=== PATIENT | male | born 1970 | race Caucasian/White ===

== ENCOUNTER 2022-03-30 17:20 | Inpatient (IN) | payer OTHER, SELFPAY ==
--- NOTE | ~2022-03-30 | XR_ITS ---
EXAMINATION: XR CHEST CLINICAL INFORMATION: Right-sided pain COMPARISON: None TECHNIQUE: 2 views of the chest were obtained. FINDINGS: No significant abnormality is noted involving the heart, lungs, mediastinum, bony thorax or soft tissues. XR/XR chest 2V IMPRESSION: Unremarkable examination.
--- NOTE | ~2022-03-30 | XR_ITS ---
EXAMINATION: RIGHT SHOULDER, HUMERUS, ELBOW AND FOREARM X-RAYS CLINICAL INFORMATION: Pain COMPARISON: None TECHNIQUE: 4 views of the right shoulder, 2 views of the right humerus, 3 views of the right elbow and 2 views of the right forearm FINDINGS: Right shoulder: Bone alignment is normal. No fracture or dislocation is seen. There is mild arthritis at the acromioclavicular joint. The glenohumeral joint is normal. Soft tissues are normal. Right humerus: Bone alignment is normal. No fracture or dislocation. Normal joint spaces and soft tissues. Right elbow: Bone alignment is normal. No fracture or dislocation. Joint spaces are normal. There is no joint effusion. Right forearm: Bone alignment is normal. No fracture or dislocation. Joint spaces are normal. Soft tissues are normal.. XR/XR elbow RT 2V IMPRESSION: Mild arthritis at the right acromioclavicular joint otherwise unremarkable exams.
--- NOTE | ~2022-03-30 | XR_ITS ---
EXAMINATION: RIGHT SHOULDER, HUMERUS, ELBOW AND FOREARM X-RAYS CLINICAL INFORMATION: Pain COMPARISON: None TECHNIQUE: 4 views of the right shoulder, 2 views of the right humerus, 3 views of the right elbow and 2 views of the right forearm FINDINGS: Right shoulder: Bone alignment is normal. No fracture or dislocation is seen. There is mild arthritis at the acromioclavicular joint. The glenohumeral joint is normal. Soft tissues are normal. Right humerus: Bone alignment is normal. No fracture or dislocation. Normal joint spaces and soft tissues. Right elbow: Bone alignment is normal. No fracture or dislocation. Joint spaces are normal. There is no joint effusion. Right forearm: Bone alignment is normal. No fracture or dislocation. Joint spaces are normal. Soft tissues are normal.. XR/XR forearm RT 2V IMPRESSION: Mild arthritis at the right acromioclavicular joint otherwise unremarkable exams.
--- NOTE | ~2022-03-30 | XR_ITS ---
EXAMINATION: RIGHT SHOULDER, HUMERUS, ELBOW AND FOREARM X-RAYS CLINICAL INFORMATION: Pain COMPARISON: None TECHNIQUE: 4 views of the right shoulder, 2 views of the right humerus, 3 views of the right elbow and 2 views of the right forearm FINDINGS: Right shoulder: Bone alignment is normal. No fracture or dislocation is seen. There is mild arthritis at the acromioclavicular joint. The glenohumeral joint is normal. Soft tissues are normal. Right humerus: Bone alignment is normal. No fracture or dislocation. Normal joint spaces and soft tissues. Right elbow: Bone alignment is normal. No fracture or dislocation. Joint spaces are normal. There is no joint effusion. Right forearm: Bone alignment is normal. No fracture or dislocation. Joint spaces are normal. Soft tissues are normal.. XR/XR humerus RT IMPRESSION: Mild arthritis at the right acromioclavicular joint otherwise unremarkable exams.
--- NOTE | ~2022-03-30 | XR_ITS ---
EXAMINATION: RIGHT SHOULDER, HUMERUS, ELBOW AND FOREARM X-RAYS CLINICAL INFORMATION: Pain COMPARISON: None TECHNIQUE: 4 views of the right shoulder, 2 views of the right humerus, 3 views of the right elbow and 2 views of the right forearm FINDINGS: Right shoulder: Bone alignment is normal. No fracture or dislocation is seen. There is mild arthritis at the acromioclavicular joint. The glenohumeral joint is normal. Soft tissues are normal. Right humerus: Bone alignment is normal. No fracture or dislocation. Normal joint spaces and soft tissues. Right elbow: Bone alignment is normal. No fracture or dislocation. Joint spaces are normal. There is no joint effusion. Right forearm: Bone alignment is normal. No fracture or dislocation. Joint spaces are normal. Soft tissues are normal.. XR/XR shoulder RT min 2V IMPRESSION: Mild arthritis at the right acromioclavicular joint otherwise unremarkable exams.
--- NOTE | 2022-03-30 17:26 | ED_ITS ---
HPI - Psych General Chief Complaint: Psychiatric Symptoms <Adriana Esquivel NP - Last Filed: 03/31/22 02:07> Stated Complaint: section 12 <Adriana Esquivel NP - Last Filed: 03/31/22 02:07> Time Seen by Provider: 03/31/22 03:02 <Adriana Esquivel NP - Last Filed: 03/31/22 02:07> Source: patient and EMS <Adriana Esquivel NP - Last Filed: 03/31/22 02:07> Mode of arrival: EMS <Adriana Esquivel NP - Last Filed: 03/31/22 02:07> Limitations: no limitations <Adriana Esquivel NP - Last Filed: 03/31/22 02:07> History of Present Illness HPI Narrative: 51-year-old male presents via EMS on a Section 12 bed search from the community. Patient is suicidal and has a plan. <Adriana Esquivel NP - Last Filed: 03/31/22 02:07> MD complaint: suicidal ideation and substance abuse <Adriana Esquivel NP - Last Filed: 03/31/22 02:07> Onset (ago): week(s) <Adriana Esquivel NP - Last Filed: 03/31/22 02:07> Duration: constant <Adriana Esquivel NP - Last Filed: 03/31/22 02:07> History of same: Yes <Adriana Esquivel NP - Last Filed: 03/31/22 02:07> Relieving factors: none <Adriana Esquivel NP - Last Filed: 03/31/22 02:07> Context: recent drug abuse <Adriana Esquivel NP - Last Filed: 03/31/22 02:07> Associated psychiatric symptoms: depression and suicidal ideation <Adriana Esquivel NP - Last Filed: 03/31/22 02:07> Associated symptoms: denies other symptoms <Adriana Esquivel NP - Last Filed: 03/31/22 02:07> Treatments prior to arrival: placed on mental health hold <Adriana Esquivel NP - Last Filed: 03/31/22 02:07> If self harm: admits thoughts of self harm and has plan <SARATH England Last Filed: 03/31/22 02:07> Related Data Home Medications: Home Medications Medication Instructions Recorded Confirmed bictegravir 50 mg-emtricitabine 1 tab PO DAILY 03/30/22 03/30/22 200 mg-tenofovir alafenam 25 mg tablet (Biktarvy) budesonide-formoterol HFA 80 1 inh inhalation BID 03/30/22 03/30/22 mcg-4.5 mcg/actuation aerosol inhaler (Symbicort) quetiapine 50 mg tablet 1 tab PO BEDTIME 03/30/22 03/30/22 <Adriana Esquivel NP - Last Filed: 03/31/22 02:07> Allergies/Adverse Reactions: Allergies Allergy/AdvReac Type Severity Reaction Status Date / Time No Known Allergies Allergy Verified 03/30/22 17:29 <SARATH England Last Filed: 03/31/22 02:07> Review of Systems Review of Systems: Constitutional: No Fever, No Chills ENT/Mouth: No Ear Pain, No Hoarseness, No sore throat Eyes: No Eye Pain, No Swelling, No Redness, No Foreign Body Cardiovascular: No Chest Pain, No SOB Respiratory: No Cough, No Dyspnea Gastrointestinal: No Nausea, No Vomiting, No Diarrhea, No abdominal Pain Genitourinary: No Dysuria, No Hematuria Musculoskeletal: No joint pain, No Myalgias, No Joint Swelling Skin: No Skin lacerations, No rash Neuro: No Weakness, No Numbness, No Paresthesias, No Loss of Consciousness, No Dizziness, No Headache Psych: No Anxiety/Panic, positive Depression, positive suicidal ideation, positive substance abuse, Heme/Lymph: no easy bruising, no Lymphadenopathy Endocrine: No Polyuria, No Polydipsia <SARATH England Last Filed: 03/31/22 02:07> Yes all other systems are reviewed and are negative <Adriana Esquivel NP - Last Filed: 03/31/22 02:07> [facility] Past Medical History Attestation statement: The following information was validated with the patient. <SARATH England Last Filed: 03/31/22 02:07> Source: old records reviewed <Adriana Esquivel NP - Last Filed: 03/31/22 02:07> Social History Social History: Social History Use of substances other than those prescribed or required for medical reasons: Yes Substance Use Type: Crack/Cocaine Advance Directives: No Advance Directives Information Provided: No <Adriana Esquivel NP - Last Filed: 03/31/22 02:07> Physical Exam Vital Signs: Vital Signs: Last Vital Signs Temp 98.6 F 03/31/22 08:59 Pulse 93 03/31/22 08:59 Resp 16 03/31/22 08:59 BP 113/76 03/31/22 08:59 Pulse Ox 99 03/31/22 08:59 O2 Del Method 03/31/22 08:59 BMI result Body Mass Index 27.4 <Adriana Esquivel NP - Last Filed: 03/31/22 02:07> Vital Signs: Last Vital Signs Temp 98.6 F 03/31/22 08:59 Pulse 93 03/31/22 08:59 Resp 16 03/31/22 08:59 BP 113/76 03/31/22 08:59 Pulse Ox 99 03/31/22 08:59 O2 Del Method 03/31/22 08:59 BMI result Body Mass Index 27.4 <Karrie Adorno MD - Last Filed: 03/31/22 05:14> Vital Signs: Last Vital Signs Temp 98.6 F 03/31/22 08:59 Pulse 93 03/31/22 08:59 Resp 16 03/31/22 08:59 BP 113/76 03/31/22 08:59 Pulse Ox 99 03/31/22 08:59 O2 Del Method 03/31/22 08:59 BMI result Body Mass Index 27.4 <Vicente Perez MD - Last Filed: 03/31/22 14:26> Appearance: Alert. Oriented X3. No acute distress. Eyes: Pupils equal, round and reactive to light. ENT: Pharynx normal. Neck: Normal inspection. Neck supple. CVS: Normal heart rate and rhythm. Pulses normal. Respiratory: No respiratory distress. Breath sounds normal. Abdomen: Soft and nontender. Skin: Folliculitis to his back, 1 cm growth to his left dorsal aspect of the 5th metacarpal. Skin warm and dry. Normal skin color. Normal skin turgor. Extremities: No lower extremity edema. Gait well-balanced well coordinated. Neuro: No motor deficit. No sensory deficit. Cranial nerves 2-12 intact. <Adriana Esquivel NP - Last Filed: 03/31/22 02:07> Course Course Course Narrative: 51-year-old male presents via EMS on section 12 bed search from the community for suicidal ideation with plan. Patient does report using cocaine. States that he has been depressed for several weeks. Patient reports feeling better at this time knowing that he is going to get help. Will order labs. Patient does have a rash to his back consistent with folliculitis and hard growth to his left dorsal aspect of the 5th metacarpal. Will order doxycycline as patient is immunocompromised and has HIV. 17:28 physician observation at this time. <Adriana Esquivel NP - Last Filed: 03/31/22 02:07> Reevaluation(s) Reevaluation #1: No events overnight. Patient's white blood cell count within normal limits, no fever chills. Patient being treated with doxycycline b.i.d. for hand cellulitis.. Patient is on a Section 12, bed search, vitals stable <Karrie Adorno MD - Last Filed: 03/31/22 05:14> Time: 05:13 <Karrie Adorno MD - Last Filed: 03/31/22 05:14> Reevaluation #2: Patient has been admitted for psych for SI with plan <Vicente Perez MD - Last Filed: 03/31/22 14:26> Time: 14:25 <Vicente Perez MD - Last Filed: 03/31/22 14:26> MDM - Psych Differential Diagnosis Differential diagnosis: Likely suicidal ideation, depression, drug-induced psychotic disorder and substance abuse <Adirana Esquivel NP - Last Filed: 03/31/22 02:07> Medical Records Attestation: I reviewed the patient's medical records. <Adriana Esquivel NP - Last Filed: 03/31/22 02:07> Lab Data Attestation: I reviewed the patient's lab results. <Adriana Esquivel NP - Last Filed: 03/31/22 02:07> Result diagrams: : 03/30/22 17:57 03/30/22 17:57 <Adriana Esquivel, SOCIAL AND HUMAN SERVICES ASSISTANT - Last Filed: 03/31/22 02:07> Labs: Lab Results 03/30/22 03/30/22 03/30/22 Range/Units 17:57 17:57 17:57 WBC 5.8 (4.8-10.8) X10*3/uL RBC 4.47 L (4.60-5.80) X10*6/uL Hgb 14.7 (14.0-18.0) g/dl Hct 41.5 L (42.0-52.0) % MCV 92.8 (80.0-98.0) fL MCH 32.9 (27.0-33.0) pg MCHC 35.4 (31.0-36.0) g/dl RDW 12.6 (11.0-16.0) % Plt Count 140 L (160-400) X10*3/uL MPV 10.5 (9.4-12.4) fL Immature Gran % (Auto) 0.2 (0.0-0.4) % Neut % (Auto) 63.1 (45-73) % Lymph % (Auto) 20.0 (20-40) % Talbot % (Auto) 13.9 H (2-11) % Eos % (Auto) 2.1 (0-4) % Baso % (Auto) 0.7 (0-2) % Lymph # (Auto) 1.2 (1.2-4.9) X10*3/uL Talbot # (Auto) 0.8 (0.1-1.2) X10*3/uL Eos # (Auto) 0.1 (0.0-0.4) X10*3/uL Baso # (Auto) 0.0 (0.0-0.2) X10*3/uL Abs Immat Gran (auto) 0.01 (0.00-0.03) X10*3/uL Absolute Neuts (auto) 3.6 (2.0-8.3) x10*3/uL Absolute Nucleated RBC 0.000 (0.0-0.012) X10*3/uL Nucleated RBC % (auto) 0.0 (0.0-0.2) /100WBC Sodium 138 (135-145) mmol/L Potassium 3.6 (3.3-5.1) mmol/L Chloride 101 (96-108) mmol/L Carbon Dioxide 25 (22-29) mmol/L Anion Gap 16 (12-20) BUN 20 H (9-16) mg/dL Creatinine 1.11 (0.5-1.4) mg/dL Estim Creat Clear Calc 77.8 Estimated GFR > 60 Random Glucose 105 (60-115) mg/dL Calcium 10.0 (8.4-10.2) mg/dL Total Bilirubin 0.9 (0.0-1.0) mg/dL AST 23 (5-37) U/L ALT 19 (0-40) U/L Alkaline Phosphatase 42 (39-117) U/L Total Protein 7.8 (6.5-8.0) g/dL Albumin 4.7 (3.5-5.0) g/dL Urine Opiates Screen Not Detected (Not Detect) Urine Fentanyl Screen Not Detected (Not Detect) Ur Barbiturates Screen Not Detected (Not Detect) Ur Phencyclidine Scrn Not Detected (Not Detect) Ur Amphetamines Screen Not Detected (Not Detect) U Benzodiazepines Scrn Not Detected (Not Detect) Urine Cocaine Screen POSITIVE H (Not Detect) U Marijuana (THC) Screen Not Detected (Not Detect) Ethyl Alcohol < 10 mg/dL COVID-19 ([facility]) (Negative) COVID-19 Clin Com 03/30/22 03/31/22 Range/Units 18:00 12:22 WBC (4.8-10.8) X10*3/uL RBC (4.60-5.80) X10*6/uL Hgb (14.0-18.0) g/dl Hct (42.0-52.0) % MCV (80.0-98.0) fL MCH (27.0-33.0) pg MCHC (31.0-36.0) g/dl RDW (11.0-16.0) % Plt Count (160-400) X10*3/uL MPV (9.4-12.4) fL Immature Gran % (Auto) (0.0-0.4) % Neut % (Auto) (45-73) % Lymph % (Auto) (20-40) % Talbot % (Auto) (2-11) % Eos % (Auto) (0-4) % Baso % (Auto) (0-2) % Lymph # (Auto) (1.2-4.9) X10*3/uL Talbot # (Auto) (0.1-1.2) X10*3/uL Eos # (Auto) (0.0-0.4) X10*3/uL Baso # (Auto) (0.0-0.2) X10*3/uL Abs Immat Gran (auto) (0.00-0.03) X10*3/uL Absolute Neuts (auto) (2.0-8.3) x10*3/uL Absolute Nucleated RBC (0.0-0.012) X10*3/uL Nucleated RBC % (auto) (0.0-0.2) /100WBC Sodium (135-145) mmol/L Potassium (3.3-5.1) mmol/L Chloride (96-108) mmol/L Carbon Dioxide (22-29) mmol/L Anion Gap (12-20) BUN (9-16) mg/dL Creatinine (0.5-1.4) mg/dL Estim Creat Clear Calc Estimated GFR Random Glucose (60-115) mg/dL Calcium (8.4-10.2) mg/dL Total Bilirubin (0.0-1.0) mg/dL AST (5-37) U/L ALT (0-40) U/L Alkaline Phosphatase (39-117) U/L Total Protein (6.5-8.0) g/dL Albumin (3.5-5.0) g/dL Urine Opiates Screen (Not Detect) Urine Fentanyl Screen (Not Detect) Ur Barbiturates Screen (Not Detect) Ur Phencyclidine Scrn (Not Detect) Ur Amphetamines Screen (Not Detect) U Benzodiazepines Scrn (Not Detect) Urine Cocaine Screen (Not Detect) U Marijuana (THC) Screen (Not Detect) Ethyl Alcohol mg/dL COVID-19 ([facility]) Negative Negative (Negative) COVID-19 Clin Com See Note See Note <Adriana Esquivel NP - Last Filed: 03/31/22 02:07> Lab Results 03/30/22 03/30/22 03/30/22 Range/Units 17:57 17:57 17:57 WBC 5.8 (4.8-10.8) X10*3/uL RBC 4.47 L (4.60-5.80) X10*6/uL Hgb 14.7 (14.0-18.0) g/dl Hct 41.5 L (42.0-52.0) % MCV 92.8 (80.0-98.0) fL MCH 32.9 (27.0-33.0) pg MCHC 35.4 (31.0-36.0) g/dl RDW 12.6 (11.0-16.0) % Plt Count 140 L (160-400) X10*3/uL MPV 10.5 (9.4-12.4) fL Immature Gran % (Auto) 0.2 (0.0-0.4) % Neut % (Auto) 63.1 (45-73) % Lymph % (Auto) 20.0 (20-40) % Talbot % (Auto) 13.9 H (2-11) % Eos % (Auto) 2.1 (0-4) % Baso % (Auto) 0.7 (0-2) % Lymph # (Auto) 1.2 (1.2-4.9) X10*3/uL Talbot # (Auto) 0.8 (0.1-1.2) X10*3/uL Eos # (Auto) 0.1 (0.0-0.4) X10*3/uL Baso # (Auto) 0.0 (0.0-0.2) X10*3/uL Abs Immat Gran (auto) 0.01 (0.00-0.03) X10*3/uL Absolute Neuts (auto) 3.6 (2.0-8.3) x10*3/uL Absolute Nucleated RBC 0.000 (0.0-0.012) X10*3/uL Nucleated RBC % (auto) 0.0 (0.0-0.2) /100WBC Sodium 138 (135-145) mmol/L Potassium 3.6 (3.3-5.1) mmol/L Chloride 101 (96-108) mmol/L Carbon Dioxide 25 (22-29) mmol/L Anion Gap 16 (12-20) BUN 20 H (9-16) mg/dL Creatinine 1.11 (0.5-1.4) mg/dL Estim Creat Clear Calc 77.8 Estimated GFR > 60 Random Glucose 105 (60-115) mg/dL Calcium 10.0 (8.4-10.2) mg/dL Total Bilirubin 0.9 (0.0-1.0) mg/dL AST 23 (5-37) U/L ALT 19 (0-40) U/L Alkaline Phosphatase 42 (39-117) U/L Total Protein 7.8 (6.5-8.0) g/dL Albumin 4.7 (3.5-5.0) g/dL Urine Opiates Screen Not Detected (Not Detect) Urine Fentanyl Screen Not Detected (Not Detect) Ur Barbiturates Screen Not Detected (Not Detect) Ur Phencyclidine Scrn Not Detected (Not Detect) Ur Amphetamines Screen Not Detected (Not Detect) U Benzodiazepines Scrn Not Detected (Not Detect) Urine Cocaine Screen POSITIVE H (Not Detect) U Marijuana (THC) Screen Not Detected (Not Detect) Ethyl Alcohol < 10 mg/dL COVID-19 ([facility]) (Negative) COVID-19 Clin Com 03/30/22 03/31/22 Range/Units 18:00 12:22 WBC (4.8-10.8) X10*3/uL RBC (4.60-5.80) X10*6/uL Hgb (14.0-18.0) g/dl Hct (42.0-52.0) % MCV (80.0-98.0) fL MCH (27.0-33.0) pg MCHC (31.0-36.0) g/dl RDW (11.0-16.0) % Plt Count (160-400) X10*3/uL MPV (9.4-12.4) fL Immature Gran % (Auto) (0.0-0.4) % Neut % (Auto) (45-73) % Lymph % (Auto) (20-40) % Talbot % (Auto) (2-11) % Eos % (Auto) (0-4) % Baso % (Auto) (0-2) % Lymph # (Auto) (1.2-4.9) X10*3/uL Talbot # (Auto) (0.1-1.2) X10*3/uL Eos # (Auto) (0.0-0.4) X10*3/uL Baso # (Auto) (0.0-0.2) X10*3/uL Abs Immat Gran (auto) (0.00-0.03) X10*3/uL Absolute Neuts (auto) (2.0-8.3) x10*3/uL Absolute Nucleated RBC (0.0-0.012) X10*3/uL Nucleated RBC % (auto) (0.0-0.2) /100WBC Sodium (135-145) mmol/L Potassium (3.3-5.1) mmol/L Chloride (96-108) mmol/L Carbon Dioxide (22-29) mmol/L Anion Gap (12-20) BUN (9-16) mg/dL Creatinine (0.5-1.4) mg/dL Estim Creat Clear Calc Estimated GFR Random Glucose (60-115) mg/dL Calcium (8.4-10.2) mg/dL Total Bilirubin (0.0-1.0) mg/dL AST (5-37) U/L ALT (0-40) U/L Alkaline Phosphatase (39-117) U/L Total Protein (6.5-8.0) g/dL Albumin (3.5-5.0) g/dL Urine Opiates Screen (Not Detect) Urine Fentanyl Screen (Not Detect) Ur Barbiturates Screen (Not Detect) Ur Phencyclidine Scrn (Not Detect) Ur Amphetamines Screen (Not Detect) U Benzodiazepines Scrn (Not Detect) Urine Cocaine Screen (Not Detect) U Marijuana (THC) Screen (Not Detect) Ethyl Alcohol mg/dL COVID-19 ([facility]) Negative Negative (Negative) COVID-19 Clin Com See Note See Note <Karrie Adorno MD - Last Filed: 03/31/22 05:14> Lab Results 03/30/22 03/30/22 03/30/22 Range/Units 17:57 17:57 17:57 WBC 5.8 (4.8-10.8) X10*3/uL RBC 4.47 L (4.60-5.80) X10*6/uL Hgb 14.7 (14.0-18.0) g/dl Hct 41.5 L (42.0-52.0) % MCV 92.8 (80.0-98.0) fL MCH 32.9 (27.0-33.0) pg MCHC 35.4 (31.0-36.0) g/dl RDW 12.6 (11.0-16.0) % Plt Count 140 L (160-400) X10*3/uL MPV 10.5 (9.4-12.4) fL Immature Gran % (Auto) 0.2 (0.0-0.4) % Neut % (Auto) 63.1 (45-73) % Lymph % (Auto) 20.0 (20-40) % Talbot % (Auto) 13.9 H (2-11) % Eos % (Auto) 2.1 (0-4) % Baso % (Auto) 0.7 (0-2) % Lymph # (Auto) 1.2 (1.2-4.9) X10*3/uL Talbot # (Auto) 0.8 (0.1-1.2) X10*3/uL Eos # (Auto) 0.1 (0.0-0.4) X10*3/uL Baso # (Auto) 0.0 (0.0-0.2) X10*3/uL Abs Immat Gran (auto) 0.01 (0.00-0.03) X10*3/uL Absolute Neuts (auto) 3.6 (2.0-8.3) x10*3/uL Absolute Nucleated RBC 0.000 (0.0-0.012) X10*3/uL Nucleated RBC % (auto) 0.0 (0.0-0.2) /100WBC Sodium 138 (135-145) mmol/L Potassium 3.6 (3.3-5.1) mmol/L Chloride 101 (96-108) mmol/L Carbon Dioxide 25 (22-29) mmol/L Anion Gap 16 (12-20) BUN 20 H (9-16) mg/dL Creatinine 1.11 (0.5-1.4) mg/dL Estim Creat Clear Calc 77.8 Estimated GFR > 60 Random Glucose 105 (60-115) mg/dL Calcium 10.0 (8.4-10.2) mg/dL Total Bilirubin 0.9 (0.0-1.0) mg/dL AST 23 (5-37) U/L ALT 19 (0-40) U/L Alkaline Phosphatase 42 (39-117) U/L Total Protein 7.8 (6.5-8.0) g/dL Albumin 4.7 (3.5-5.0) g/dL Urine Opiates Screen Not Detected (Not Detect) Urine Fentanyl Screen Not Detected (Not Detect) Ur Barbiturates Screen Not Detected (Not Detect) Ur Phencyclidine Scrn Not Detected (Not Detect) Ur Amphetamines Screen Not Detected (Not Detect) U Benzodiazepines Scrn Not Detected (Not Detect) Urine Cocaine Screen POSITIVE H (Not Detect) U Marijuana (THC) Screen Not Detected (Not Detect) Ethyl Alcohol < 10 mg/dL COVID-19 ([facility]) (Negative) COVID-19 Clin Com 03/30/22 03/31/22 Range/Units 18:00 12:22 WBC (4.8-10.8) X10*3/uL RBC (4.60-5.80) X10*6/uL Hgb (14.0-18.0) g/dl Hct (42.0-52.0) % MCV (80.0-98.0) fL MCH (27.0-33.0) pg MCHC (31.0-36.0) g/dl RDW (11.0-16.0) % Plt Count (160-400) X10*3/uL MPV (9.4-12.4) fL Immature Gran % (Auto) (0.0-0.4) % Neut % (Auto) (45-73) % Lymph % (Auto) (20-40) % Talbot % (Auto) (2-11) % Eos % (Auto) (0-4) % Baso % (Auto) (0-2) % Lymph # (Auto) (1.2-4.9) X10*3/uL Talbot # (Auto) (0.1-1.2) X10*3/uL Eos # (Auto) (0.0-0.4) X10*3/uL Baso # (Auto) (0.0-0.2) X10*3/uL Abs Immat Gran (auto) (0.00-0.03) X10*3/uL Absolute Neuts (auto) (2.0-8.3) x10*3/uL Absolute Nucleated RBC (0.0-0.012) X10*3/uL Nucleated RBC % (auto) (0.0-0.2) /100WBC Sodium (135-145) mmol/L Potassium (3.3-5.1) mmol/L Chloride (96-108) mmol/L Carbon Dioxide (22-29) mmol/L Anion Gap (12-20) BUN (9-16) mg/dL Creatinine (0.5-1.4) mg/dL Estim Creat Clear Calc Estimated GFR Random Glucose (60-115) mg/dL Calcium (8.4-10.2) mg/dL Total Bilirubin (0.0-1.0) mg/dL AST (5-37) U/L ALT (0-40) U/L Alkaline Phosphatase (39-117) U/L Total Protein (6.5-8.0) g/dL Albumin (3.5-5.0) g/dL Urine Opiates Screen (Not Detect) Urine Fentanyl Screen (Not Detect) Ur Barbiturates Screen (Not Detect) Ur Phencyclidine Scrn (Not Detect) Ur Amphetamines Screen (Not Detect) U Benzodiazepines Scrn (Not Detect) Urine Cocaine Screen (Not Detect) U Marijuana (THC) Screen (Not Detect) Ethyl Alcohol mg/dL COVID-19 ([facility]) Negative Negative (Negative) COVID-19 Clin Com See Note See Note <Vicente Perez MD - Last Filed: 03/31/22 14:26> Discharge Plan Discharge Clinical Impression: Suicidal ideation, Folliculitis <Adriana Esquivel NP - Last Filed: 03/31/22 02:07> Patient Disposition: Admitted As Inpatient <Adriana Esquivel NP - Last Filed: 03/31/22 02:07>
[2022-03-30 17:28] VITALS: BP 127/79; BP 136/96; PULSE 65; PULSE 71; RESP 14; TEMP 36.6; O2SAT 98; BMI 27.4
--- NOTE | 2022-03-30 17:37 | MHC.CARE ---
Pt was evaluated by [facility] in the community and arrives as a Sect 12 Bedsearch
[2022-03-30 18:03] LABS: MANUAL DIFF FLAG NO
[2022-03-30 18:09] LABS: Basophils Percent Auto 0.7 % (0-2); Eosinophils Absolute Auto 0.1 X10*3/uL (0.0-0.4); Eosinophils Percent Auto 2.1 % (0-4); Hematocrit 41.5 % (42.0-52.0); Hemoglobin 14.7 g/dl (14.0-18.0); Imm Gran Abs Auto 0.01 X10*3/uL (0.00-0.03); Imm Gran Pct Auto 0.2 % (0.0-0.4); Lymphocytes Absolute Auto 1.2 X10*3/uL (1.2-4.9); Mean Corpuscular HGB Conc 35.4 g/dl (31.0-36.0); Mean Corpuscular Hemoglobin 32.9 pg (27.0-33.0); Mean Corpuscular Volume 92.8 fL (80.0-98.0); Mean Platelet Volume 10.5 fL (9.4-12.4); Monocytes Absolute Auto 0.8 X10*3/uL (0.1-1.2); Monocytes Percent Auto 13.9 % (2-11); Neutrophils Absolute Auto 3.6 x10*3/uL (2.0-8.3); Neutrophils Percent Auto 63.1 % (45-73); Platelet Count 140 X10*3/uL (160-400); Red Blood Count 4.47 X10*6/uL (4.60-5.80); Red Cell Distribution Width 12.6 % (11.0-16.0); White Blood Count 5.8 X10*3/uL (4.8-10.8)
--- NOTE | 2022-03-30 18:17 | PC.NURSE ---
pt section 12 by silvestre due to SI with plan to walk into traffic, denies HI. pt changed into hospital attire, belongings searched and secured in locker in the POD. labs drawn, snack given. denies pain/vss. pt currently resting quietly in bed. pt cooperative with all requests. he denies SI/HI at this time. this rn at the pt's bedside.
[2022-03-30 18:21] LABS: COVID-19 Test Negative (Negative)
[2022-03-30 18:24] LABS: Alanine Aminotransferase 19 U/L (0-40); Albumin Level 4.7 g/dL (3.5-5.0); Alkaline Phosphatase 42 U/L (39-117); Amphetamine Screen Urine Not Detected (Not Detect); Anion Gap 16 (12-20); Aspartate Amino Transferase 23 U/L (5-37); Barbiturates, Urine Not Detected (Not Detect); Benzodiazepines Screen Urine Not Detected (Not Detect); Bilirubin Total 0.9 mg/dL (0.0-1.0); Blood Urea Nitrogen 20 mg/dL (9-16); Cannabinoid Screen Urine Not Detected (Not Detect); Carbon Dioxide 25 mmol/L (22-29); Chloride 101 mmol/L (96-108); Cocaine Screen Urine POSITIVE (Not Detect); Creatinine Clr Calc Pharmacy 77.8; Estimated Glomerular Filt Rate > 60; Ethanol < 10 mg/dL; Fentanyl, urine Not Detected (Not Detect); Glucose Random 105 mg/dL (60-115); Opiate Screen Urine Not Detected (Not Detect); Phencyclidine Screen Urine Not Detected (Not Detect); Potassium 3.6 mmol/L (3.3-5.1); Sodium 138 mmol/L (135-145); Total Protein 7.8 g/dL (6.5-8.0)
--- NOTE | 2022-03-31 | ECG_ITS ---
Test Reason : medical clearance Blood Pressure : / mmHG Vent. Rate : 056 BPM Atrial Rate : 056 BPM P-R Int : 142 ms QRS Dur : 096 ms QT Int : 388 ms P-R-T Axes : 047 040 052 degrees QTc Int : 374 ms Sinus bradycardia Otherwise normal ECG No previous ECGs available Referred By: Vicente Perez Electronically Signed By:DANA CONNER
[2022-03-31 01:51] VITALS: BP 115/83; PULSE 66; RESP 16; TEMP 36.4; O2SAT 98
--- NOTE | 2022-03-31 06:39 | PC.NURSE ---
Patient slept through the night, no distress observed/reported, mood depressed, [place] speaking only, patient is on Doxy 100 gm BID for folliculitis, medication compliant, disposition per [facility] is section 12 inpatient bed search, med rec completed/pending provider's approval, behavior non concerning, VSS, will continue to monitor.
--- NOTE | 2022-03-31 07:37 | PC.NURSE ---
Report received. PT currently resting, denies complaints. PT is an inpatient bedsearch.
[2022-03-31 08:59] VITALS: BP 113/76; PULSE 93; RESP 16; TEMP 37; O2SAT 99
[2022-03-31] MEDS: Bictegrav/Emtricit/Tenofov Ala TABLET 1 TAB PO (10:02)
[2022-03-31 12:46] LABS: COVID-19 Test Negative (Negative)
--- NOTE | 2022-03-31 18:33 | PC.NURSE ---
PT MOVED TO THE MAIN ED TO AWAIT TRANSFER TO . PT COOPERATIVE AND AGREEABLE. PROVIDED DINNER
--- NOTE | 2022-03-31 22:17 | PC.NURSE ---
attempted to call report at 2040pm and 2215pm. Unable to take report at this time.
[2022-03-31] MEDS: QUEtiapine Fumarate 50 MG TABLET PO (23:08)
[2022-03-31 23:35] VITALS: BP 116/63; PULSE 72; TEMP 35.9
--- NOTE | 2022-04-01 01:26 | PC.ADMIT ---
Patient is a 51-year-old, Sudanese, Bulgarian speaking male. He presents to from [facility] ED at approximately 23:30 03/31/22 on a 12B status. Patient is Covid negative. Per crisis report, patient was seen by N via self-presenting to the [facility] office. Patient endorses SI with a plan to jump into traffic. He reported AH/VH. He reports not sleeping for 3 days. Reports a decrease in appetite. Reports not feeling well and struggling with increased substance use. He does report using cocaine, which toxicology came back positive for. He has the inability to keep safe and was not able to make a safety plan. Patient is not previously known to psychiatry at [facility]. He states he has been depressed for several weeks, and reports feeling better at this time knowing that he is going to get help. Patient is immunocompromised and has HIV. Patient was cooperative in listening to instruction and signing all legal documentation, but declined any further admission interview due to receiving HS medication in ED and wanted to go to sleep.
[2022-04-01 06:00] VITALS: BP 118/84; PULSE 69; RESP 16; TEMP 36.6; O2SAT 98
[2022-04-01 09:07] LABS: Cholesterol 159 mg/dL; HDL Cholesterol 35 mg/dL; LDL Cholesterol Calculated 109 mg/dl; Magnesium 1.9 mg/dL (1.6-2.6); Triglycerides 79 mg/dL
[2022-04-01 09:10] LABS: Estimated Average Glucose 97 mg/dL
[2022-04-01] MEDS: Fluticasone/Vilanterol 100/25 BLST.W.DEV 1 PUFF INHALE (09:13)
[2022-04-01] MEDS: Bictegrav/Emtricit/Tenofov Ala TABLET 1 TAB PO (09:15)
[2022-04-01 09:29] LABS: Free T4 (Free Thyroxine) 0.96 ng/dL (0.71-1.85); Thyroid Stimulating Hormone 0.45 uIU/mL (0.32-4.0)
[2022-04-01 10:06] LABS: Folate 8.8 ng/mL (> or = 4.0); Vitamin B12 328 pg/mL (200-900)
[2022-04-01 18:00] VITALS: BP 111/70; PULSE 72; TEMP 36.7; O2SAT 97
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
[2022-04-01] MEDS: QUEtiapine Fumarate 50 MG TABLET PO (19:42)
[2022-04-02 06:00] VITALS: BP 118/73; PULSE 59; RESP 18; TEMP 36.5; O2SAT 97
[2022-04-02] MEDS: Bictegrav/Emtricit/Tenofov Ala TABLET 1 TAB PO (08:12)
[2022-04-02] MEDS: Fluticasone/Vilanterol 100/25 BLST.W.DEV 1 PUFF INHALE (08:13)
[2022-04-02] MEDS: hydrOXYzine HCL 25 MG TABLET PO (09:35)
[2022-04-02] MEDS: Nicotine 21 MG PATCH.TD24 TRANSDERMA (09:42)
[2022-04-02 17:23] VITALS: BP 122/75; PULSE 68; RESP 16; TEMP 36.6; O2SAT 99
--- NOTE | 2022-04-02 18:23 | HO.PSYCHPN ---
Subjective Subjective Date of Service: 04/02/22 Reason For Visit: Depression,SI Subjective Notes: Conditional Voluntary Healthcare Proxy: No Guardianship: No Medical Problems Affecting Mental Status: No Interim History: Pt reports feeling somewhat improved. Continues to ask for a long program for sobriety >28 days. SI persists, reports he is safe on the unit. Discussed sx of depression and possible trial of medication. Reports chest and right arm pain- EKG, chest xray and r arm/shoulder/forearm xrays are negative except for ID of mild arthritis. Medication Compliance: Yes Side effects from medications: No Attending Groups: Yes Review of Systems Acute medical concerns: No Medical Review of Systems: unchanged Mental Status Exam Mental Status Exam Patient Appearance: Appropriate Patient Orientation: Person, Place, Time and Situation Level of Consciousness: Alert Patient Behavior: Appropriate, Talkative and Good Eye Contact Mood Description: Depressed and Anxious Affect Description: Flat Patient Cognition Impaired: No Ability to Follow Directions: Good Speech Pattern: Spontaneous Speech Memory Description: Intact and Episodic Impaired Hallucinations: None Delusions: Not Present Perceptual Disturbances: Depersonalization and Derealization Thought Process: Rumination Thought Content: positive for Perseveration and positive for Suicidal Ideation Depressive Symptoms: Difficulty Sleeping, Changes in Appetite and Thoughts of /Suicide Judgement: Fair Diagnostics Vital Signs (24Hr): Vital Signs - 24 hr 04/02/22 06:00 04/02/22 17:23 Temperature 97.7 F 97.9 F Pulse Rate 59 68 Respiratory Rate 18 16 Blood Pressure 118/73 122/75 Pulse Oximetry 97 99 Oxygen Delivery Method Room Air Room Air BMI result Body Mass Index 27.4 Labs Results: 03/30/22 17:57 03/30/22 17:57 Labs: Laboratory Results - last 48 hr 04/01/22 04/01/22 04/01/22 08:28 08:28 08:28 Estimat Average Glucose 97 Hemoglobin A1c % 5.0 Magnesium 1.9 Triglycerides 79 Cholesterol 159 LDL Cholesterol, Calc 109 HDL Cholesterol 35 Vitamin B12 328 Folate 8.8 TSH 0.45 Free T4 0.96 Imaging Radiology Impressions: ITS Impressions Chest X-Ray 04/02/22 14:45 IMPRESSION: Unremarkable examination. Elbow X-Ray 04/02/22 14:45 IMPRESSION: Mild arthritis at the right acromioclavicular joint otherwise unremarkable exams. Forearm X-Ray 04/02/22 14:45 IMPRESSION: Mild arthritis at the right acromioclavicular joint otherwise unremarkable exams. Humerus X-Ray 04/02/22 14:45 IMPRESSION: Mild arthritis at the right acromioclavicular joint otherwise unremarkable exams. Shoulder X-Ray 04/02/22 14:45 IMPRESSION: Mild arthritis at the right acromioclavicular joint otherwise unremarkable exams. Medications Medications Current Medications Acetaminophen (Acetaminophen 325 Mg Tablet) 650 mg PO Q6H PRN PRN Reason: Headache/Pain Mild Scale (1-3) Al Hydroxide/Mg Hydroxide (Magnesium Hydrox/Alum Hydrox 30 Ml Oral.Susp) 30 ml PO Q6H PRN PRN Reason: Heartburn/Nausea Bictegravir/Emtricitabine/Tenofovir (Bictegrav/Emtricit/Tenofov Ala Tablet) 1 tab PO DAILY [facility] Last Admin: 04/02/22 08:12 Dose: 1 tab Doxycycline Hyclate (Doxycycline Hyclate 100 Mg Tablet) 100 mg PO BID [facility] Stop: 04/09/22 20:59 Last Admin: 04/02/22 08:12 Dose: 100 mg Fluticasone/Vilanterol (Fluticasone/Vilanterol 100/25 Blst.W.Dev) 1 puff INHALE RDAILY [facility] Last Admin: 04/02/22 08:13 Dose: 1 puff Hydroxyzine HCl (Hydroxyzine Hcl 25 Mg Tablet) 25 mg PO Q6H PRN PRN Reason: Anxiety Last Admin: 04/02/22 09:35 Dose: 25 mg Magnesium Hydroxide (Milk Of Magnesia 30 Ml Oral.Susp) 30 ml PO DAILY PRN PRN Reason: Constipation Mirtazapine (Mirtazapine 7.5 Mg Tablet) 7.5 mg PO BEDTIME [facility] Nicotine (Nicotine 21 Mg Patch.Td24) 21 mg TRANSDERMA DAILY [facility] Last Admin: 04/02/22 09:42 Dose: 21 mg Nicotine Polacrilex (Nicotine Polacrilex 2 Mg Gum) 4 mg BUCCAL Q2H PRN PRN Reason: Nicotine Cravings Quetiapine Fumarate (Quetiapine Fumarate 50 Mg Tablet) 50 mg PO BEDTIME [facility] Last Admin: 04/01/22 19:42 Dose: 50 mg Trazodone HCl (Trazodone Hcl 50 Mg Tablet) 50 mg PO BEDTIME PRN PRN Reason: Insomnia Allergies Allergies Allergy/AdvReac Type Severity Reaction Status Date / Time No Known Allergies Allergy Verified 03/30/22 17:29 Assessment & Plan Assessment & Plan (1) Recurrent major depression-severe: Status: Acute Code(s): F33.2 - Major depressive disorder, recurrent severe without psychotic features (2) PTSD (post-traumatic stress disorder): Status: Acute Code(s): F43.10 - Post-traumatic stress disorder, unspecified (3) Cocaine use disorder, severe, dependence: Status: Acute Code(s): F14.20 - Cocaine dependence, uncomplicated (4) Polysubstance abuse: Status: Acute Code(s): F19.10 - Other psychoactive substance abuse, uncomplicated Plan 04/02/22 Remeron 7.5 mg HS I spent minutes with the patient and/or on the patient floor today, greater than?50% of which was spent counseling/coordinating care. Patient educated on: medication risk/benefits Informed Consent: understands and further education needed Reason for contiued inpatient stay Substantial Risk for: harm to self and inability to function
[2022-04-02] MEDS: QUEtiapine Fumarate 50 MG TABLET PO (21:05)
[2022-04-02] MEDS: Mirtazapine 7.5 MG TABLET PO (21:05)
[2022-04-03 06:00] VITALS: BP 120/75; PULSE 65; TEMP 36.4; O2SAT 99
[2022-04-03] MEDS: Bictegrav/Emtricit/Tenofov Ala TABLET 1 TAB PO (08:40)
[2022-04-03] MEDS: Nicotine 21 MG PATCH.TD24 TRANSDERMA (08:40)
[2022-04-03] MEDS: Fluticasone/Vilanterol 100/25 BLST.W.DEV 1 PUFF INHALE (08:40)
[2022-04-03 08:49] VITALS: BMI 28.2
[2022-04-03] MEDS: hydrOXYzine HCL 25 MG TABLET PO (09:45)
[2022-04-03] MEDS: Magnesium Hydrox/Alum Hydrox 30 ML ORAL.SUSP PO (09:45)
[2022-04-03] MEDS: Hydrocortisone 1 % Cream 28.35 GM TUBE 1 APPL TOPICAL (12:44)
--- NOTE | 2022-04-03 16:17 | HO.PSYCHPN ---
Subjective Subjective Date of Service: 04/03/22 Reason For Visit: Depression,SI Subjective Notes: Conditional Voluntary Interim History: Discussed results of xrays-no fractures-arthritis found/?neuropathic pain. Discussed Gabapentin trial for discomfort. Tolerating meds/changes. Reports he slept last night. Medication Compliance: Yes Side effects from medications: No Attending Groups: Yes Review of Systems Acute medical concerns: No Medical Review of Systems: unchanged Mental Status Exam Mental Status Exam Patient Appearance: Appropriate Patient Orientation: Person, Place, Time and Situation Level of Consciousness: Alert Patient Behavior: Appropriate, Talkative and Good Eye Contact Mood Description: Depressed and Anxious Affect Description: Flat Patient Cognition Impaired: No Ability to Follow Directions: Good Speech Pattern: Spontaneous Speech Memory Description: Intact and Episodic Impaired Hallucinations: None Delusions: Not Present Perceptual Disturbances: Depersonalization and Derealization Thought Process: Rumination Thought Content: positive for Perseveration Depressive Symptoms: Difficulty Sleeping and Changes in Appetite Judgement: Fair Diagnostics Vital Signs (24Hr): Vital Signs - 24 hr 04/02/22 17:23 04/03/22 06:00 Temperature 97.9 F 97.5 F Pulse Rate 68 65 Respiratory Rate 16 Blood Pressure 122/75 120/75 Pulse Oximetry 99 99 Oxygen Delivery Method Room Air Room Air BMI result Body Mass Index 28.2 Labs Results: 03/30/22 17:57 03/30/22 17:57 Imaging Radiology Impressions: ITS Impressions Chest X-Ray 04/02/22 14:45 IMPRESSION: Unremarkable examination. Elbow X-Ray 04/02/22 14:45 IMPRESSION: Mild arthritis at the right acromioclavicular joint otherwise unremarkable exams. Forearm X-Ray 04/02/22 14:45 IMPRESSION: Mild arthritis at the right acromioclavicular joint otherwise unremarkable exams. Humerus X-Ray 04/02/22 14:45 IMPRESSION: Mild arthritis at the right acromioclavicular joint otherwise unremarkable exams. Shoulder X-Ray 04/02/22 14:45 IMPRESSION: Mild arthritis at the right acromioclavicular joint otherwise unremarkable exams. Medications Medications Current Medications Acetaminophen (Acetaminophen 325 Mg Tablet) 650 mg PO Q6H PRN PRN Reason: Headache/Pain Mild Scale (1-3) Al Hydroxide/Mg Hydroxide (Magnesium Hydrox/Alum Hydrox 30 Ml Oral.Susp) 30 ml PO Q6H PRN PRN Reason: Heartburn/Nausea Last Admin: 04/03/22 09:45 Dose: 30 ml Bictegravir/Emtricitabine/Tenofovir (Bictegrav/Emtricit/Tenofov Ala Tablet) 1 tab PO DAILY [facility] Last Admin: 04/03/22 08:40 Dose: 1 tab Doxycycline Hyclate (Doxycycline Hyclate 100 Mg Tablet) 100 mg PO BID [facility] Stop: 04/09/22 20:59 Last Admin: 04/03/22 08:40 Dose: 100 mg Fluticasone/Vilanterol (Fluticasone/Vilanterol 100/25 Blst.W.Dev) 1 puff INHALE RDAILY [facility] Last Admin: 04/03/22 08:40 Dose: 1 puff Hydrocortisone (Hydrocortisone 1 % Cream 28.35 Gm Tube) 1 appl TOPICAL BID PRN; Protocol PRN Reason: rash Last Admin: 04/03/22 12:44 Dose: 1 appl Hydroxyzine HCl (Hydroxyzine Hcl 25 Mg Tablet) 25 mg PO Q6H PRN PRN Reason: Anxiety Last Admin: 04/03/22 09:45 Dose: 25 mg Magnesium Hydroxide (Milk Of Magnesia 30 Ml Oral.Susp) 30 ml PO DAILY PRN PRN Reason: Constipation Mirtazapine (Mirtazapine 7.5 Mg Tablet) 7.5 mg PO BEDTIME [facility] Last Admin: 04/02/22 21:05 Dose: 7.5 mg Nicotine (Nicotine 21 Mg Patch.Td24) 21 mg TRANSDERMA DAILY [facility] Last Admin: 04/03/22 08:40 Dose: 21 mg Nicotine Polacrilex (Nicotine Polacrilex 2 Mg Gum) 4 mg BUCCAL Q2H PRN PRN Reason: Nicotine Cravings Quetiapine Fumarate (Quetiapine Fumarate 50 Mg Tablet) 50 mg PO BEDTIME [facility] Last Admin: 04/02/22 21:05 Dose: 50 mg Trazodone HCl (Trazodone Hcl 50 Mg Tablet) 50 mg PO BEDTIME PRN PRN Reason: Insomnia Allergies Allergies Allergy/AdvReac Type Severity Reaction Status Date / Time No Known Allergies Allergy Verified 03/30/22 17:29 Assessment & Plan Assessment & Plan (1) Recurrent major depression-severe: Status: Acute Code(s): F33.2 - Major depressive disorder, recurrent severe without psychotic features (2) PTSD (post-traumatic stress disorder): Status: Acute Code(s): F43.10 - Post-traumatic stress disorder, unspecified (3) Cocaine use disorder, severe, dependence: Status: Acute Code(s): F14.20 - Cocaine dependence, uncomplicated (4) Polysubstance abuse: Status: Acute Code(s): F19.10 - Other psychoactive substance abuse, uncomplicated Plan 04/02/22 Remeron 7.5 mg HS 04/03/22 Continue current plan I spent minutes with the patient and/or on the patient floor today, greater than?50% of which was spent counseling/coordinating care. Patient educated on: therapeutic strategies and medical condition Informed Consent: understands and further education needed Reason for contiued inpatient stay Substantial Risk for: inability to function and rapid decompensation
[2022-04-03 16:34] VITALS: BP 125/89; PULSE 79
[2022-04-03] MEDS: Mirtazapine 7.5 MG TABLET PO (19:47)
[2022-04-03] MEDS: Gabapentin 100 MG CAPSULE PO (19:47)
[2022-04-03] MEDS: QUEtiapine Fumarate 50 MG TABLET PO (19:47)
[2022-04-04 08:54] VITALS: BP 119/78; PULSE 70; RESP 16; TEMP 36.5; O2SAT 98
[2022-04-04] MEDS: Gabapentin 100 MG CAPSULE PO ×2 (09:13→22:22)
[2022-04-04] MEDS: Nicotine 21 MG PATCH.TD24 TRANSDERMA (09:13)
[2022-04-04] MEDS: Fluticasone/Vilanterol 100/25 BLST.W.DEV 1 PUFF INHALE (09:14)
[2022-04-04] MEDS: Bictegrav/Emtricit/Tenofov Ala TABLET 1 TAB PO (09:14)
--- NOTE | 2022-04-04 13:55 | HO.PSYCHPN ---
Subjective Subjective Date of Service: 04/04/22 Reason For Visit: Depression,SI Subjective Notes: Conditional Voluntary Interim History: Pt requested referral to [facility] in [place]. He had been there is [place] in the past. Colten Vaughn made contact and pt will be able to attend. His niece will arrange transport probably next week. Pt found this program to be helpful in the past. Medication Compliance: Yes Side effects from medications: No Attending Groups: Yes Review of Systems Acute medical concerns: No Medical Review of Systems: unchanged Mental Status Exam Mental Status Exam Patient Appearance: Appropriate Patient Orientation: Person, Place, Time and Situation Level of Consciousness: Alert Patient Behavior: Appropriate, Talkative and Good Eye Contact Mood Description: Depressed and Anxious Affect Description: Flat Patient Cognition Impaired: No Ability to Follow Directions: Good Speech Pattern: Spontaneous Speech Memory Description: Intact and Episodic Impaired Hallucinations: None Delusions: Not Present Perceptual Disturbances: Depersonalization and Derealization Thought Process: Rumination Thought Content: positive for Perseveration Depressive Symptoms: Difficulty Sleeping and Changes in Appetite Judgement: Fair Diagnostics Vital Signs (24Hr): Vital Signs - 24 hr 04/03/22 16:34 04/04/22 08:54 Temperature 97.7 F Pulse Rate 79 70 Respiratory Rate 16 Blood Pressure 125/89 119/78 Pulse Oximetry 98 Oxygen Delivery Method Room Air BMI result Body Mass Index 28.2 Labs Results: 03/30/22 17:57 03/30/22 17:57 Imaging Radiology Impressions: ITS Impressions Chest X-Ray 04/02/22 14:45 IMPRESSION: Unremarkable examination. Elbow X-Ray 04/02/22 14:45 IMPRESSION: Mild arthritis at the right acromioclavicular joint otherwise unremarkable exams. Forearm X-Ray 04/02/22 14:45 IMPRESSION: Mild arthritis at the right acromioclavicular joint otherwise unremarkable exams. Humerus X-Ray 04/02/22 14:45 IMPRESSION: Mild arthritis at the right acromioclavicular joint otherwise unremarkable exams. Shoulder X-Ray 04/02/22 14:45 IMPRESSION: Mild arthritis at the right acromioclavicular joint otherwise unremarkable exams. Medications Medications Current Medications Acetaminophen (Acetaminophen 325 Mg Tablet) 650 mg PO Q6H PRN PRN Reason: Headache/Pain Mild Scale (1-3) Al Hydroxide/Mg Hydroxide (Magnesium Hydrox/Alum Hydrox 30 Ml Oral.Susp) 30 ml PO Q6H PRN PRN Reason: Heartburn/Nausea Last Admin: 04/03/22 09:45 Dose: 30 ml Bictegravir/Emtricitabine/Tenofovir (Bictegrav/Emtricit/Tenofov Ala Tablet) 1 tab PO DAILY [facility] Last Admin: 04/04/22 09:14 Dose: 1 tab Doxycycline Hyclate (Doxycycline Hyclate 100 Mg Tablet) 100 mg PO BID [facility] Stop: 04/09/22 20:59 Last Admin: 04/04/22 09:14 Dose: 100 mg Fluticasone/Vilanterol (Fluticasone/Vilanterol 100/25 Blst.W.Dev) 1 puff INHALE RDAILY [facility] Last Admin: 04/04/22 09:14 Dose: 1 puff Gabapentin (Gabapentin 100 Mg Capsule) 100 mg PO TID [facility] Last Admin: 04/04/22 09:13 Dose: 100 mg Hydrocortisone (Hydrocortisone 1 % Cream 28.35 Gm Tube) 1 appl TOPICAL BID PRN; Protocol PRN Reason: rash Last Admin: 04/03/22 12:44 Dose: 1 appl Hydroxyzine HCl (Hydroxyzine Hcl 25 Mg Tablet) 25 mg PO Q6H PRN PRN Reason: Anxiety Last Admin: 04/03/22 09:45 Dose: 25 mg Magnesium Hydroxide (Milk Of Magnesia 30 Ml Oral.Susp) 30 ml PO DAILY PRN PRN Reason: Constipation Mirtazapine (Mirtazapine 7.5 Mg Tablet) 7.5 mg PO BEDTIME [facility] Last Admin: 04/03/22 19:47 Dose: 7.5 mg Nicotine (Nicotine 21 Mg Patch.Td24) 21 mg TRANSDERMA DAILY [facility] Last Admin: 04/04/22 09:13 Dose: 21 mg Nicotine Polacrilex (Nicotine Polacrilex 2 Mg Gum) 4 mg BUCCAL Q2H PRN PRN Reason: Nicotine Cravings Quetiapine Fumarate (Quetiapine Fumarate 50 Mg Tablet) 50 mg PO BEDTIME [facility] Last Admin: 04/03/22 19:47 Dose: 50 mg Trazodone HCl (Trazodone Hcl 50 Mg Tablet) 50 mg PO BEDTIME PRN PRN Reason: Insomnia Allergies Allergies Allergy/AdvReac Type Severity Reaction Status Date / Time No Known Allergies Allergy Verified 03/30/22 17:29 Assessment & Plan Assessment & Plan (1) Recurrent major depression-severe: Status: Acute Code(s): F33.2 - Major depressive disorder, recurrent severe without psychotic features (2) PTSD (post-traumatic stress disorder): Status: Acute Code(s): F43.10 - Post-traumatic stress disorder, unspecified (3) Cocaine use disorder, severe, dependence: Status: Acute Code(s): F14.20 - Cocaine dependence, uncomplicated (4) Polysubstance abuse: Status: Acute Code(s): F19.10 - Other psychoactive substance abuse, uncomplicated Plan 04/02/22 Remeron 7.5 mg HS 04/04/22 Continue current plan. Discharge planning for [facility] next week. I spent minutes with the patient and/or on the patient floor today, greater than?50% of which was spent counseling/coordinating care. Patient educated on: therapeutic strategies Informed Consent: understands and further education needed Reason for contiued inpatient stay Substantial Risk for: inability to function and rapid decompensation
[2022-04-04 16:09] VITALS: BP 130/84; PULSE 97; RESP 16; TEMP 36.6; O2SAT 97
[2022-04-04] MEDS: QUEtiapine Fumarate 50 MG TABLET PO (22:21)
[2022-04-04] MEDS: Mirtazapine 7.5 MG TABLET PO (22:21)
[2022-04-05 06:00] VITALS: BP 118/73; PULSE 67; RESP 16; TEMP 36.6; O2SAT 98
[2022-04-05] MEDS: Gabapentin 100 MG CAPSULE PO ×3 (09:26→21:39)
[2022-04-05] MEDS: Fluticasone/Vilanterol 100/25 BLST.W.DEV 1 PUFF INHALE (09:26)
[2022-04-05] MEDS: Nicotine 21 MG PATCH.TD24 TRANSDERMA (09:26)
[2022-04-05] MEDS: Bictegrav/Emtricit/Tenofov Ala TABLET 1 TAB PO (09:26)
[2022-04-05 16:11] VITALS: BP 122/74; PULSE 77; TEMP 37
--- NOTE | 2022-04-05 16:55 | HO.PSYCHPN ---
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 denies current problems, very vague responses, no mention of substance use disorder. states he is waiting to get into some kind of program in [place] for people with mental health issues. reports he is satisfied with where his medications are at the moment. per staff, social with roommate. demanding eves, insisting on calling a niece's defunct number with staff phones. slept OK. Mental Status Exam Mental Status Exam Narrative: Adequately dressed and groomed.? Cooperative, no PMA/PMR.? poor eye contact. Speech nml rate, decr amount, decr loudness, flattened tone, nml latency.? Thoughts linear and logical.? Affect constricted, normo-intense, non-labile.? Mood euthymic.? No SI/HI/AVH expressed. Diagnostics Vital Signs (24Hr): Vital Signs - 24 hr 04/05/22 06:00 04/05/22 16:11 Temperature 97.9 F 98.6 F Pulse Rate 67 77 Respiratory Rate 16 Blood Pressure 118/73 122/74 Pulse Oximetry 98 BMI result Body Mass Index 28.2 Labs Results: 03/30/22 17:57 03/30/22 17:57 Imaging Radiology Impressions: ITS Impressions Chest X-Ray 04/02/22 14:45 IMPRESSION: Unremarkable examination. Elbow X-Ray 04/02/22 14:45 IMPRESSION: Mild arthritis at the right acromioclavicular joint otherwise unremarkable exams. Forearm X-Ray 04/02/22 14:45 IMPRESSION: Mild arthritis at the right acromioclavicular joint otherwise unremarkable exams. Humerus X-Ray 04/02/22 14:45 IMPRESSION: Mild arthritis at the right acromioclavicular joint otherwise unremarkable exams. Shoulder X-Ray 04/02/22 14:45 IMPRESSION: Mild arthritis at the right acromioclavicular joint otherwise unremarkable exams. Medications Medications Current Medications Acetaminophen (Acetaminophen 325 Mg Tablet) 650 mg PO Q6H PRN PRN Reason: Headache/Pain Mild Scale (1-3) Al Hydroxide/Mg Hydroxide (Magnesium Hydrox/Alum Hydrox 30 Ml Oral.Susp) 30 ml PO Q6H PRN PRN Reason: Heartburn/Nausea Last Admin: 04/03/22 09:45 Dose: 30 ml Bictegravir/Emtricitabine/Tenofovir (Bictegrav/Emtricit/Tenofov Ala Tablet) 1 tab PO DAILY [facility] Last Admin: 04/05/22 09:26 Dose: 1 tab Doxycycline Hyclate (Doxycycline Hyclate 100 Mg Tablet) 100 mg PO BID [facility] Stop: 04/09/22 20:59 Last Admin: 04/05/22 09:26 Dose: 100 mg Fluticasone/Vilanterol (Fluticasone/Vilanterol 100/25 Blst.W.Dev) 1 puff INHALE RDAILY [facility] Last Admin: 04/05/22 09:26 Dose: 1 puff Gabapentin (Gabapentin 100 Mg Capsule) 100 mg PO TID [facility] Last Admin: 04/05/22 15:46 Dose: 100 mg Hydrocortisone (Hydrocortisone 1 % Cream 28.35 Gm Tube) 1 appl TOPICAL BID PRN; Protocol PRN Reason: rash Last Admin: 04/03/22 12:44 Dose: 1 appl Hydroxyzine HCl (Hydroxyzine Hcl 25 Mg Tablet) 25 mg PO Q6H PRN PRN Reason: Anxiety Last Admin: 04/03/22 09:45 Dose: 25 mg Magnesium Hydroxide (Milk Of Magnesia 30 Ml Oral.Susp) 30 ml PO DAILY PRN PRN Reason: Constipation Mirtazapine (Mirtazapine 7.5 Mg Tablet) 7.5 mg PO BEDTIME [facility] Last Admin: 04/04/22 22:21 Dose: 7.5 mg Nicotine (Nicotine 21 Mg Patch.Td24) 21 mg TRANSDERMA DAILY [facility] Last Admin: 04/05/22 09:26 Dose: 21 mg Nicotine Polacrilex (Nicotine Polacrilex 2 Mg Gum) 4 mg BUCCAL Q2H PRN PRN Reason: Nicotine Cravings Quetiapine Fumarate (Quetiapine Fumarate 50 Mg Tablet) 50 mg PO BEDTIME [facility] Last Admin: 04/04/22 22:21 Dose: 50 mg Trazodone HCl (Trazodone Hcl 50 Mg Tablet) 50 mg PO BEDTIME PRN PRN Reason: Insomnia Allergies Allergies Allergy/AdvReac Type Severity Reaction Status Date / Time No Known Allergies Allergy Verified 03/30/22 17:29 Assessment & Plan Assessment & Plan (1) Recurrent major depression-severe: Status: Acute Code(s): F33.2 - Major depressive disorder, recurrent severe without psychotic features (2) PTSD (post-traumatic stress disorder): Status: Acute Code(s): F43.10 - Post-traumatic stress disorder, unspecified (3) Cocaine use disorder, severe, dependence: Status: Acute Code(s): F14.20 - Cocaine dependence, uncomplicated (4) Polysubstance abuse: Status: Acute Code(s): F19.10 - Other psychoactive substance abuse, uncomplicated Plan 04/02/22 Remeron 7.5 mg HS 04/04/22 Continue current plan. Discharge planning for Cas[facility] Ghosh next week. 04/05: continue current mgmt. I spent __25____ minutes with the patient and/or on the patient floor today, greater than?50% of which was spent counseling/coordinating care. Reason for contiued inpatient stay Substantial Risk for: inability to function and rapid decompensation
[2022-04-05] MEDS: QUEtiapine Fumarate 50 MG TABLET PO (21:39)
[2022-04-05] MEDS: Mirtazapine 7.5 MG TABLET PO (21:39)
[2022-04-06 06:00] VITALS: BP 121/76; PULSE 74; RESP 18; TEMP 36.6; O2SAT 98
[2022-04-06] MEDS: Hydrocortisone 1 % Cream 28.35 GM TUBE 1 APPL TOPICAL (08:50)
[2022-04-06] MEDS: Fluticasone/Vilanterol 100/25 BLST.W.DEV 1 PUFF INHALE (08:50)
[2022-04-06] MEDS: Bictegrav/Emtricit/Tenofov Ala TABLET 1 TAB PO (08:51)
[2022-04-06] MEDS: Gabapentin 100 MG CAPSULE PO ×3 (08:51→21:17)
[2022-04-06] MEDS: Nicotine 21 MG PATCH.TD24 TRANSDERMA (08:51)
--- NOTE | 2022-04-06 16:21 | HO.PSYCHPN ---
Subjective Subjective Date of Service: 04/06/22 Reason For Visit: Depression,SI Interim History: seen with pashto speaking staff for interpretation. pt evasive and vague, basically notes he has a substance abuse problem and is planning to go to a facility in [place] for treatment. no other complaints or requests. per staff, slept well. no issues. taking meds, eating well. Mental Status Exam Mental Status Exam Narrative: Adequately dressed and groomed.? Cooperative, no PMA/PMR.? poor eye contact. Speech nml rate, incr amount, nml loudness, flattened tone, nml latency.? Thoughts vague and evasive.? Affect constricted, normo-intense, non-labile.? Mood euthymic.? No SI/HI/AVH expressed. Diagnostics Vital Signs (24Hr): Vital Signs - 24 hr 04/06/22 06:00 Temperature 97.9 F Pulse Rate 74 Respiratory Rate 18 Blood Pressure 121/76 Pulse Oximetry 98 BMI result Body Mass Index 28.2 Labs Results: 03/30/22 17:57 03/30/22 17:57 Imaging Radiology Impressions: ITS Impressions Chest X-Ray 04/02/22 14:45 IMPRESSION: Unremarkable examination. Elbow X-Ray 04/02/22 14:45 IMPRESSION: Mild arthritis at the right acromioclavicular joint otherwise unremarkable exams. Forearm X-Ray 04/02/22 14:45 IMPRESSION: Mild arthritis at the right acromioclavicular joint otherwise unremarkable exams. Humerus X-Ray 04/02/22 14:45 IMPRESSION: Mild arthritis at the right acromioclavicular joint otherwise unremarkable exams. Shoulder X-Ray 04/02/22 14:45 IMPRESSION: Mild arthritis at the right acromioclavicular joint otherwise unremarkable exams. Medications Medications Current Medications Acetaminophen (Acetaminophen 325 Mg Tablet) 650 mg PO Q6H PRN PRN Reason: Headache/Pain Mild Scale (1-3) Al Hydroxide/Mg Hydroxide (Magnesium Hydrox/Alum Hydrox 30 Ml Oral.Susp) 30 ml PO Q6H PRN PRN Reason: Heartburn/Nausea Last Admin: 04/03/22 09:45 Dose: 30 ml Bictegravir/Emtricitabine/Tenofovir (Bictegrav/Emtricit/Tenofov Ala Tablet) 1 tab PO DAILY [facility] Last Admin: 04/06/22 08:51 Dose: 1 tab Doxycycline Hyclate (Doxycycline Hyclate 100 Mg Tablet) 100 mg PO BID [facility] Stop: 04/09/22 20:59 Last Admin: 04/06/22 08:51 Dose: 100 mg Fluticasone/Vilanterol (Fluticasone/Vilanterol 100/25 Blst.W.Dev) 1 puff INHALE RDAILY [facility] Last Admin: 04/06/22 08:50 Dose: 1 puff Gabapentin (Gabapentin 100 Mg Capsule) 100 mg PO TID [facility] Last Admin: 04/06/22 14:50 Dose: 100 mg Hydrocortisone (Hydrocortisone 1 % Cream 28.35 Gm Tube) 1 appl TOPICAL BID PRN; Protocol PRN Reason: rash Last Admin: 04/06/22 08:50 Dose: 1 appl Hydroxyzine HCl (Hydroxyzine Hcl 25 Mg Tablet) 25 mg PO Q6H PRN PRN Reason: Anxiety Last Admin: 04/03/22 09:45 Dose: 25 mg Magnesium Hydroxide (Milk Of Magnesia 30 Ml Oral.Susp) 30 ml PO DAILY PRN PRN Reason: Constipation Mirtazapine (Mirtazapine 7.5 Mg Tablet) 7.5 mg PO BEDTIME [facility] Last Admin: 04/05/22 21:39 Dose: 7.5 mg Nicotine (Nicotine 21 Mg Patch.Td24) 21 mg TRANSDERMA DAILY [facility] Last Admin: 04/06/22 08:51 Dose: 21 mg Nicotine Polacrilex (Nicotine Polacrilex 2 Mg Gum) 4 mg BUCCAL Q2H PRN PRN Reason: Nicotine Cravings Quetiapine Fumarate (Quetiapine Fumarate 50 Mg Tablet) 50 mg PO BEDTIME [facility] Last Admin: 04/05/22 21:39 Dose: 50 mg Trazodone HCl (Trazodone Hcl 50 Mg Tablet) 50 mg PO BEDTIME PRN PRN Reason: Insomnia Allergies Allergies Allergy/AdvReac Type Severity Reaction Status Date / Time No Known Allergies Allergy Verified 03/30/22 17:29 Assessment & Plan Assessment & Plan (1) Recurrent major depression-severe: Status: Acute Code(s): F33.2 - Major depressive disorder, recurrent severe without psychotic features (2) PTSD (post-traumatic stress disorder): Status: Acute Code(s): F43.10 - Post-traumatic stress disorder, unspecified (3) Cocaine use disorder, severe, dependence: Status: Acute Code(s): F14.20 - Cocaine dependence, uncomplicated (4) Polysubstance abuse: Status: Acute Code(s): F19.10 - Other psychoactive substance abuse, uncomplicated Plan 04/02/22 Remeron 7.5 mg HS 04/04/22 Continue current plan. Discharge planning for Casper Ghosh next week. 04/05: continue current mgmt. 04/06: continue current mgmt. I spent ___20___ minutes with the patient and/or on the patient floor today, greater than?50% of which was spent counseling/coordinating care. Reason for contiued inpatient stay Substantial Risk for: inability to function and rapid decompensation
[2022-04-06 17:52] VITALS: BP 123/71; PULSE 61; TEMP 36.6
[2022-04-06] MEDS: Mirtazapine 7.5 MG TABLET PO (21:17)
[2022-04-06] MEDS: QUEtiapine Fumarate 50 MG TABLET PO (21:17)
[2022-04-07 06:00] VITALS: BP 119/72; PULSE 76; RESP 18; TEMP 36.7; O2SAT 98
[2022-04-07] MEDS: Fluticasone/Vilanterol 100/25 BLST.W.DEV 1 PUFF INHALE (08:49)
[2022-04-07] MEDS: Bictegrav/Emtricit/Tenofov Ala TABLET 1 TAB PO (08:49)
[2022-04-07] MEDS: Gabapentin 100 MG CAPSULE PO ×3 (08:49→21:44)
[2022-04-07] MEDS: Nicotine 21 MG PATCH.TD24 TRANSDERMA (08:50)
--- NOTE | 2022-04-07 13:31 | P.PNPSI_ITS ---
Subjective Subjective Date of Service: 04/07/22 Reason For Visit: Depression,SI Interim History: pt was resting in bed around noon and declined to rouse himself for a meeting with . per staff, no changes in presentation or behavior. Mental Status Exam Mental Status Exam Narrative: sleeping in bed with shirt over his face. Diagnostics Vital Signs (24Hr): Vital Signs - 24 hr 04/06/22 17:52 04/07/22 06:00 Temperature 98 F 98.1 F Pulse Rate 61 76 Respiratory Rate 18 Blood Pressure 123/71 119/72 Pulse Oximetry 98 BMI result Body Mass Index 28.2 Labs Results: 03/30/22 17:57 03/30/22 17:57 Imaging Radiology Impressions: ITS Impressions Chest X-Ray 04/02/22 14:45 IMPRESSION: Unremarkable examination. Elbow X-Ray 04/02/22 14:45 IMPRESSION: Mild arthritis at the right acromioclavicular joint otherwise unremarkable exams. Forearm X-Ray 04/02/22 14:45 IMPRESSION: Mild arthritis at the right acromioclavicular joint otherwise unremarkable exams. Humerus X-Ray 04/02/22 14:45 IMPRESSION: Mild arthritis at the right acromioclavicular joint otherwise unremarkable exams. Shoulder X-Ray 04/02/22 14:45 IMPRESSION: Mild arthritis at the right acromioclavicular joint otherwise unremarkable exams. Medications Medications Current Medications Acetaminophen (Acetaminophen 325 Mg Tablet) 650 mg PO Q6H PRN PRN Reason: Headache/Pain Mild Scale (1-3) Al Hydroxide/Mg Hydroxide (Magnesium Hydrox/Alum Hydrox 30 Ml Oral.Susp) 30 ml PO Q6H PRN PRN Reason: Heartburn/Nausea Last Admin: 04/03/22 09:45 Dose: 30 ml Bictegravir/Emtricitabine/Tenofovir (Bictegrav/Emtricit/Tenofov Ala Tablet) 1 tab PO DAILY [facility] Last Admin: 04/07/22 08:49 Dose: 1 tab Doxycycline Hyclate (Doxycycline Hyclate 100 Mg Tablet) 100 mg PO BID [facility] Stop: 04/09/22 20:59 Last Admin: 04/07/22 08:50 Dose: 100 mg Fluticasone/Vilanterol (Fluticasone/Vilanterol 100/25 Blst.W.Dev) 1 puff INHALE RDAILY [facility] Last Admin: 04/07/22 08:49 Dose: 1 puff Gabapentin (Gabapentin 100 Mg Capsule) 100 mg PO TID [facility] Last Admin: 04/07/22 08:49 Dose: 100 mg Hydrocortisone (Hydrocortisone 1 % Cream 28.35 Gm Tube) 1 appl TOPICAL BID PRN; Protocol PRN Reason: rash Last Admin: 04/06/22 08:50 Dose: 1 appl Hydroxyzine HCl (Hydroxyzine Hcl 25 Mg Tablet) 25 mg PO Q6H PRN PRN Reason: Anxiety Last Admin: 04/03/22 09:45 Dose: 25 mg Magnesium Hydroxide (Milk Of Magnesia 30 Ml Oral.Susp) 30 ml PO DAILY PRN PRN Reason: Constipation Mirtazapine (Mirtazapine 7.5 Mg Tablet) 7.5 mg PO BEDTIME [facility] Last Admin: 04/06/22 21:17 Dose: 7.5 mg Nicotine (Nicotine 21 Mg Patch.Td24) 21 mg TRANSDERMA DAILY [facility] Last Admin: 04/07/22 08:50 Dose: 21 mg Nicotine Polacrilex (Nicotine Polacrilex 2 Mg Gum) 4 mg BUCCAL Q2H PRN PRN Reason: Nicotine Cravings Quetiapine Fumarate (Quetiapine Fumarate 50 Mg Tablet) 50 mg PO BEDTIME [facility] Last Admin: 04/06/22 21:17 Dose: 50 mg Trazodone HCl (Trazodone Hcl 50 Mg Tablet) 50 mg PO BEDTIME PRN PRN Reason: Insomnia Allergies Allergies Allergy/AdvReac Type Severity Reaction Status Date / Time No Known Allergies Allergy Verified 03/30/22 17:29 Assessment & Plan Assessment & Plan (1) Recurrent major depression-severe: Status: Acute Code(s): F33.2 - Major depressive disorder, recurrent severe without psychotic features (2) PTSD (post-traumatic stress disorder): Status: Acute Code(s): F43.10 - Post-traumatic stress disorder, unspecified (3) Cocaine use disorder, severe, dependence: Status: Acute Code(s): F14.20 - Cocaine dependence, uncomplicated (4) Polysubstance abuse: Status: Acute Code(s): F19.10 - Other psychoactive substance abuse, uncomplicated Plan 04/02/22 Remeron 7.5 mg HS 04/04/22 Continue current plan. Discharge planning for [facility] pickett week. 04/05: continue current mgmt. 04/06: continue current mgmt. 04/07: continue current mgmt. I spent _10 minutes with the patient and/or on the patient floor today, greater than?50% of which was spent counseling/coordinating care. Reason for contiued inpatient stay Substantial Risk for: rapid decompensation
[2022-04-07 16:07] VITALS: BP 125/58; PULSE 75
[2022-04-07] MEDS: QUEtiapine Fumarate 50 MG TABLET PO (21:44)
[2022-04-07] MEDS: Mirtazapine 7.5 MG TABLET PO (21:44)
[2022-04-08 06:00] VITALS: BP 90/60; PULSE 54; TEMP 36.8; O2SAT 99
[2022-04-08] MEDS: Nicotine 21 MG PATCH.TD24 TRANSDERMA (11:23)
[2022-04-08] MEDS: Gabapentin 100 MG CAPSULE PO ×2 (11:24→14:24)
[2022-04-08] MEDS: Fluticasone/Vilanterol 100/25 BLST.W.DEV 1 PUFF INHALE (11:24)
[2022-04-08] MEDS: Bictegrav/Emtricit/Tenofov Ala TABLET 1 TAB PO (11:24)
[2022-04-08 18:00] VITALS: BP 128/68; PULSE 78; RESP 16; TEMP 37; O2SAT 99
[2022-04-08] MEDS: Gabapentin 100 MG CAPSULE 200 MG PO ×2 (18:00→20:33)
--- NOTE | 2022-04-08 18:05 | HO.PSYCHPN ---
Subjective Subjective Date of Service: 04/08/22 Reason For Visit: Depression,SI Subjective Notes: Conditional Voluntary Interim History: Pt preparing for discharge to [place] program on 04/[place]. Reports meds are tolerated and effective. Denies breakthrough sx. Reports sleep, appetite to be intact Denies SI, HI. No sx of lability, psychosis Does have arm pain (arthritis, ?neuropathy). Discussed increase of Gabapentin. Medication Compliance: Yes Side effects from medications: No Attending Groups: Yes Review of Systems Acute medical concerns: No Medical Review of Systems: unchanged Mental Status Exam Mental Status Exam Patient Appearance: Appropriate Patient Orientation: Person, Place, Time and Situation Level of Consciousness: Alert Patient Behavior: Appropriate, Talkative, Cooperative and Good Eye Contact Mood Description: Calm Affect Description: Constricted Patient Cognition Impaired: No Ability to Follow Directions: Good Speech Pattern: Spontaneous Speech Memory Description: Intact Hallucinations: None Delusions: Not Present Thought Process: Intact and Goal Oriented Thought Content: positive for Intact and positive for Goal Oriented Judgement: Good Diagnostics Vital Signs (24Hr): Vital Signs - 24 hr 04/08/22 06:00 Temperature 98.2 F Pulse Rate 54 Blood Pressure 90/60 Pulse Oximetry 99 BMI result Body Mass Index 28.2 Labs Results: 03/30/22 17:57 03/30/22 17:57 Imaging Radiology Impressions: ITS Impressions Chest X-Ray 04/02/22 14:45 IMPRESSION: Unremarkable examination. Elbow X-Ray 04/02/22 14:45 IMPRESSION: Mild arthritis at the right acromioclavicular joint otherwise unremarkable exams. Forearm X-Ray 04/02/22 14:45 IMPRESSION: Mild arthritis at the right acromioclavicular joint otherwise unremarkable exams. Humerus X-Ray 04/02/22 14:45 IMPRESSION: Mild arthritis at the right acromioclavicular joint otherwise unremarkable exams. Shoulder X-Ray 04/02/22 14:45 IMPRESSION: Mild arthritis at the right acromioclavicular joint otherwise unremarkable exams. Medications Medications Current Medications Acetaminophen (Acetaminophen 325 Mg Tablet) 650 mg PO Q6H PRN PRN Reason: Headache/Pain Mild Scale (1-3) Al Hydroxide/Mg Hydroxide (Magnesium Hydrox/Alum Hydrox 30 Ml Oral.Susp) 30 ml PO Q6H PRN PRN Reason: Heartburn/Nausea Last Admin: 04/03/22 09:45 Dose: 30 ml Bictegravir/Emtricitabine/Tenofovir (Bictegrav/Emtricit/Tenofov Ala Tablet) 1 tab PO DAILY [facility] Last Admin: 04/08/22 11:24 Dose: 1 tab Doxycycline Hyclate (Doxycycline Hyclate 100 Mg Tablet) 100 mg PO BID [facility] Stop: 04/09/22 20:59 Last Admin: 04/08/22 11:24 Dose: 100 mg Fluticasone/Vilanterol (Fluticasone/Vilanterol 100/25 Blst.W.Dev) 1 puff INHALE RDAILY [facility] Last Admin: 04/08/22 11:24 Dose: 1 puff Gabapentin (Gabapentin 100 Mg Capsule) 200 mg PO TID [facility] Last Admin: 04/08/22 18:00 Dose: 200 mg Hydrocortisone (Hydrocortisone 1 % Cream 28.35 Gm Tube) 1 appl TOPICAL BID PRN; Protocol PRN Reason: rash Last Admin: 04/06/22 08:50 Dose: 1 appl Hydroxyzine HCl (Hydroxyzine Hcl 25 Mg Tablet) 25 mg PO Q6H PRN PRN Reason: Anxiety Last Admin: 04/03/22 09:45 Dose: 25 mg Magnesium Hydroxide (Milk Of Magnesia 30 Ml Oral.Susp) 30 ml PO DAILY PRN PRN Reason: Constipation Mirtazapine (Mirtazapine 7.5 Mg Tablet) 7.5 mg PO BEDTIME [facility] Last Admin: 04/07/22 21:44 Dose: 7.5 mg Nicotine (Nicotine 21 Mg Patch.Td24) 21 mg TRANSDERMA DAILY [facility] Last Admin: 04/08/22 11:23 Dose: 21 mg Nicotine Polacrilex (Nicotine Polacrilex 2 Mg Gum) 4 mg BUCCAL Q2H PRN PRN Reason: Nicotine Cravings Quetiapine Fumarate (Quetiapine Fumarate 50 Mg Tablet) 50 mg PO BEDTIME [facility] Last Admin: 04/07/22 21:44 Dose: 50 mg Trazodone HCl (Trazodone Hcl 50 Mg Tablet) 50 mg PO BEDTIME PRN PRN Reason: Insomnia Allergies Allergies Allergy/AdvReac Type Severity Reaction Status Date / Time No Known Allergies Allergy Verified 03/30/22 17:29 Assessment & Plan Assessment & Plan (1) Recurrent major depression-severe: Status: Acute Code(s): F33.2 - Major depressive disorder, recurrent severe without psychotic features (2) PTSD (post-traumatic stress disorder): Status: Acute Code(s): F43.10 - Post-traumatic stress disorder, unspecified (3) Cocaine use disorder, severe, dependence: Status: Acute Code(s): F14.20 - Cocaine dependence, uncomplicated (4) Polysubstance abuse: Status: Acute Code(s): F19.10 - Other psychoactive substance abuse, uncomplicated Plan 04/02/22 Remeron 7.5 mg HS 04/04/22 Continue current plan. Discharge planning for [facility] Ghosh next week. 04/05: continue current mgmt. 04/06: continue current mgmt. 04/07: continue current mgmt. 04/08/22: Discharge 04/10/22 Increase Gabapentin to 200 mg tid I spent minutes with the patient and/or on the patient floor today, greater than?50% of which was spent counseling/coordinating care. Patient educated on: medication risk/benefits and therapeutic strategies Informed Consent: understands and further education needed Reason for contiued inpatient stay Substantial Risk for: harm to self and rapid decompensation
[2022-04-08] MEDS: QUEtiapine Fumarate 50 MG TABLET PO (20:33)
[2022-04-08] MEDS: Mirtazapine 7.5 MG TABLET PO (20:33)
[2022-04-09 06:00] VITALS: BP 110/64; PULSE 48; RESP 14; TEMP 36.2; O2SAT 98
[2022-04-09] MEDS: Bictegrav/Emtricit/Tenofov Ala TABLET 1 TAB PO (09:08)
[2022-04-09] MEDS: Gabapentin 100 MG CAPSULE 200 MG PO ×3 (09:08→20:50)
--- NOTE | 2022-04-09 10:29 | P.PNPSI_ITS ---
Subjective Subjective Date of Service: 04/09/22 Reason For Visit: Depression,SI Interim History: Patient seen with Austrian-speaking staff. He says that he is good and denies any SI or HI. Says feeling better and sleeping well. Says again that he is feeling normal and has no complaints or requests. Patient is looking forward to going to program. Mental Status Exam Mental Status Exam Narrative: Pt is alert and oriented; behavior is cooperative, friendly and calm; patient is not in distress; dressed in casual attire with adequate hygiene; mood is described as good...normal and affect congruent; eye contact appropriate; Speech is normal rate, volume and prosody and not pressured; no psychomotor agitation/retardation present; thought process is organized and goal directed; Thought content is on tx; otherwise pertinent to relevant topics and without any delusional content, paranoid ideations or grandiosity; denies any SI/HI. There is no evidence of perceptual disturbance. Patients insight and judgment appear intact. Diagnostics Vital Signs (24Hr): Vital Signs - 24 hr 04/08/22 18:00 04/09/22 06:00 Temperature 98.6 F 97.2 F Pulse Rate 78 48 L Respiratory Rate 16 14 Blood Pressure 128/68 110/64 Pulse Oximetry 99 98 Oxygen Delivery Method Room Air Room Air BMI result Body Mass Index 28.2 Labs Results: 03/30/22 17:57 03/30/22 17:57 Imaging Radiology Impressions: ITS Impressions Chest X-Ray 04/02/22 14:45 IMPRESSION: Unremarkable examination. Elbow X-Ray 04/02/22 14:45 IMPRESSION: Mild arthritis at the right acromioclavicular joint otherwise unremarkable exams. Forearm X-Ray 04/02/22 14:45 IMPRESSION: Mild arthritis at the right acromioclavicular joint otherwise unremarkable exams. Humerus X-Ray 04/02/22 14:45 IMPRESSION: Mild arthritis at the right acromioclavicular joint otherwise unremarkable exams. Shoulder X-Ray 04/02/22 14:45 IMPRESSION: Mild arthritis at the right acromioclavicular joint otherwise unremarkable exams. Medications Medications Current Medications Acetaminophen (Acetaminophen 325 Mg Tablet) 650 mg PO Q6H PRN PRN Reason: Headache/Pain Mild Scale (1-3) Al Hydroxide/Mg Hydroxide (Magnesium Hydrox/Alum Hydrox 30 Ml Oral.Susp) 30 ml PO Q6H PRN PRN Reason: Heartburn/Nausea Last Admin: 04/03/22 09:45 Dose: 30 ml Bictegravir/Emtricitabine/Tenofovir (Bictegrav/Emtricit/Tenofov Ala Tablet) 1 tab PO DAILY [facility] Last Admin: 04/09/22 09:08 Dose: 1 tab Doxycycline Hyclate (Doxycycline Hyclate 100 Mg Tablet) 100 mg PO BID [facility] Stop: 04/09/22 20:59 Last Admin: 04/09/22 09:08 Dose: 100 mg Fluticasone/Vilanterol (Fluticasone/Vilanterol 100/25 Blst.W.Dev) 1 puff INHALE RDAILY [facility] Last Admin: 04/09/22 09:10 Dose: Not Given Gabapentin (Gabapentin 100 Mg Capsule) 200 mg PO TID [facility] Last Admin: 04/09/22 09:08 Dose: 200 mg Hydrocortisone (Hydrocortisone 1 % Cream 28.35 Gm Tube) 1 appl TOPICAL BID PRN; Protocol PRN Reason: rash Last Admin: 04/06/22 08:50 Dose: 1 appl Hydroxyzine HCl (Hydroxyzine Hcl 25 Mg Tablet) 25 mg PO Q6H PRN PRN Reason: Anxiety Last Admin: 04/03/22 09:45 Dose: 25 mg Magnesium Hydroxide (Milk Of Magnesia 30 Ml Oral.Susp) 30 ml PO DAILY PRN PRN Reason: Constipation Mirtazapine (Mirtazapine 7.5 Mg Tablet) 7.5 mg PO BEDTIME [facility] Last Admin: 04/08/22 20:33 Dose: 7.5 mg Nicotine (Nicotine 21 Mg Patch.Td24) 21 mg TRANSDERMA DAILY [facility] Last Admin: 04/09/22 09:11 Dose: Not Given Nicotine Polacrilex (Nicotine Polacrilex 2 Mg Gum) 4 mg BUCCAL Q2H PRN PRN Reason: Nicotine Cravings Quetiapine Fumarate (Quetiapine Fumarate 50 Mg Tablet) 50 mg PO BEDTIME [facility] Last Admin: 04/08/22 20:33 Dose: 50 mg Trazodone HCl (Trazodone Hcl 50 Mg Tablet) 50 mg PO BEDTIME PRN PRN Reason: Insomnia Allergies Allergies Allergy/AdvReac Type Severity Reaction Status Date / Time No Known Allergies Allergy Verified 03/30/22 17:29 Assessment & Plan Assessment & Plan (1) Recurrent major depression-severe: Status: Acute Code(s): F33.2 - Major depressive disorder, recurrent severe without psychotic features (2) PTSD (post-traumatic stress disorder): Status: Acute Code(s): F43.10 - Post-traumatic stress disorder, unspecified (3) Cocaine use disorder, severe, dependence: Status: Acute Code(s): F14.20 - Cocaine dependence, uncomplicated (4) Polysubstance abuse: Status: Acute Code(s): F19.10 - Other psychoactive substance abuse, uncomplicated Plan 04/02/22 Remeron 7.5 mg HS 04/04/22 Continue current plan. Discharge planning for [facility] [place] next week. 04/05: continue current mgmt. 04/06: continue current mgmt. 04/07: continue current mgmt. 04/09 no change in current treatment plan I spent minutes with the patient and/or on the patient floor today, greater than?50% of which was spent counseling/coordinating care. Patient educated on: diagnosis Informed Consent: understands Reason for contiued inpatient stay Substantial Risk for: stable for discharge
[2022-04-09 18:00] VITALS: BP 116/69; PULSE 99; RESP 16; TEMP 36.5; O2SAT 96
[2022-04-09] MEDS: Nicotine Polacrilex 2 MG GUM 4 MG BUCCAL (18:10)
[2022-04-09] MEDS: Mirtazapine 7.5 MG TABLET PO (20:50)
[2022-04-09] MEDS: QUEtiapine Fumarate 50 MG TABLET PO (20:50)
[2022-04-10 06:00] VITALS: BP 102/56; PULSE 53; RESP 16; TEMP 35.9; O2SAT 98
[2022-04-10] MEDS: Gabapentin 100 MG CAPSULE 200 MG PO ×3 (08:56→22:46)
[2022-04-10] MEDS: Bictegrav/Emtricit/Tenofov Ala TABLET 1 TAB PO (08:56)
--- NOTE | 2022-04-10 12:59 | HO.PSYCHPN ---
Subjective Subjective Date of Service: 04/10/22 Reason For Visit: Depression,SI Subjective Notes: Conditional Voluntary Healthcare Proxy: No Guardianship: No Medical Problems Affecting Mental Status: No Interim History: Discharge postponed due to family being unable to assist pt with transport to program in [place]. Pt will go on 04/11/22. Bus ticket in place, pt to leave [place] 9am, will arrive [place], [place] 6:30pm. Pt reports he is pleased with the plan. No new sx. Reports regime is intact. Medication Compliance: Yes Side effects from medications: No Attending Groups: Yes Review of Systems Acute medical concerns: No Medical Review of Systems: unchanged Mental Status Exam Mental Status Exam Patient Appearance: Appropriate Patient Orientation: Person, Place, Time and Situation Level of Consciousness: Alert Patient Behavior: Appropriate, Talkative, Cooperative and Good Eye Contact Mood Description: Calm Affect Description: Constricted Patient Cognition Impaired: No Ability to Follow Directions: Good Speech Pattern: Spontaneous Speech Memory Description: Intact Hallucinations: None Delusions: Not Present Thought Process: Intact and Goal Oriented Thought Content: positive for Intact and positive for Goal Oriented Judgement: Good Diagnostics Vital Signs (24Hr): Vital Signs - 24 hr 04/09/22 18:00 04/10/22 06:00 Temperature 97.7 F 96.6 F L Pulse Rate 99 53 Respiratory Rate 16 16 Blood Pressure 116/69 102/56 L Pulse Oximetry 96 98 Oxygen Delivery Method Room Air Room Air BMI result Body Mass Index 28.2 Labs Results: 03/30/22 17:57 03/30/22 17:57 Imaging Radiology Impressions: ITS Impressions Chest X-Ray 04/02/22 14:45 IMPRESSION: Unremarkable examination. Elbow X-Ray 04/02/22 14:45 IMPRESSION: Mild arthritis at the right acromioclavicular joint otherwise unremarkable exams. Forearm X-Ray 04/02/22 14:45 IMPRESSION: Mild arthritis at the right acromioclavicular joint otherwise unremarkable exams. Humerus X-Ray 04/02/22 14:45 IMPRESSION: Mild arthritis at the right acromioclavicular joint otherwise unremarkable exams. Shoulder X-Ray 04/02/22 14:45 IMPRESSION: Mild arthritis at the right acromioclavicular joint otherwise unremarkable exams. Medications Medications Current Medications Acetaminophen (Acetaminophen 325 Mg Tablet) 650 mg PO Q6H PRN PRN Reason: Headache/Pain Mild Scale (1-3) Al Hydroxide/Mg Hydroxide (Magnesium Hydrox/Alum Hydrox 30 Ml Oral.Susp) 30 ml PO Q6H PRN PRN Reason: Heartburn/Nausea Last Admin: 04/03/22 09:45 Dose: 30 ml Bictegravir/Emtricitabine/Tenofovir (Bictegrav/Emtricit/Tenofov Ala Tablet) 1 tab PO DAILY [facility] Last Admin: 04/10/22 08:56 Dose: 1 tab Fluticasone/Vilanterol (Fluticasone/Vilanterol 100/25 Blst.W.Dev) 1 puff INHALE RDAILY [facility] Last Admin: 04/10/22 08:57 Dose: Not Given Gabapentin (Gabapentin 100 Mg Capsule) 200 mg PO TID [facility] Last Admin: 04/10/22 08:56 Dose: 200 mg Hydrocortisone (Hydrocortisone 1 % Cream 28.35 Gm Tube) 1 appl TOPICAL BID PRN; Protocol PRN Reason: rash Last Admin: 04/06/22 08:50 Dose: 1 appl Hydroxyzine HCl (Hydroxyzine Hcl 25 Mg Tablet) 25 mg PO Q6H PRN PRN Reason: Anxiety Last Admin: 04/03/22 09:45 Dose: 25 mg Magnesium Hydroxide (Milk Of Magnesia 30 Ml Oral.Susp) 30 ml PO DAILY PRN PRN Reason: Constipation Mirtazapine (Mirtazapine 7.5 Mg Tablet) 7.5 mg PO BEDTIME [facility] Last Admin: 04/09/22 20:50 Dose: 7.5 mg Nicotine (Nicotine 21 Mg Patch.Td24) 21 mg TRANSDERMA DAILY [facility] Last Admin: 04/10/22 08:57 Dose: Not Given Nicotine Polacrilex (Nicotine Polacrilex 2 Mg Gum) 4 mg BUCCAL Q2H PRN PRN Reason: Nicotine Cravings Last Admin: 04/09/22 18:10 Dose: 4 mg Quetiapine Fumarate (Quetiapine Fumarate 50 Mg Tablet) 50 mg PO BEDTIME [facility] Last Admin: 04/09/22 20:50 Dose: 50 mg Trazodone HCl (Trazodone Hcl 50 Mg Tablet) 50 mg PO BEDTIME PRN PRN Reason: Insomnia Allergies Allergies Allergy/AdvReac Type Severity Reaction Status Date / Time No Known Allergies Allergy Verified 03/30/22 17:29 Assessment & Plan Assessment & Plan (1) Recurrent major depression-severe: Status: Acute Code(s): F33.2 - Major depressive disorder, recurrent severe without psychotic features (2) PTSD (post-traumatic stress disorder): Status: Acute Code(s): F43.10 - Post-traumatic stress disorder, unspecified (3) Cocaine use disorder, severe, dependence: Status: Acute Code(s): F14.20 - Cocaine dependence, uncomplicated (4) Polysubstance abuse: Status: Acute Code(s): F19.10 - Other psychoactive substance abuse, uncomplicated Plan 04/02/22 Remeron 7.5 mg HS 04/04/22 Continue current plan. Discharge planning for [facility] next week. 04/05: continue current mgmt. 04/06: continue current mgmt. 04/07: continue current mgmt. 04/10/22: Discharge 04/11/22 I spent minutes with the patient and/or on the patient floor today, greater than?50% of which was spent counseling/coordinating care. Patient educated on: medication risk/benefits and therapeutic strategies Informed Consent: understands Reason for contiued inpatient stay Substantial Risk for: harm to self, inability to function and rapid decompensation
[2022-04-10 14:33] VITALS: BMI 29.5
[2022-04-10 15:39] VITALS: BP 129/66; PULSE 74; TEMP 36.1
[2022-04-10] MEDS: Hydrocortisone 1 % Cream 28.35 GM TUBE 1 APPL TOPICAL (21:44)
[2022-04-10] MEDS: QUEtiapine Fumarate 50 MG TABLET PO (22:46)
[2022-04-10] MEDS: Mirtazapine 7.5 MG TABLET PO (22:46)
[2022-04-11 06:00] VITALS: BP 111/60; PULSE 64; RESP 16; TEMP 36.3; O2SAT 98
[2022-04-11] MEDS: Bictegrav/Emtricit/Tenofov Ala TABLET 1 TAB PO (07:41)
[2022-04-11] MEDS: Gabapentin 100 MG CAPSULE 200 MG PO (07:41)
--- NOTE | 2022-04-11 09:15 | P.DS_ITS ---
DS: Providers Provider Date of Service: 04/11/22 Date of admission: 03/31/22 13:41 Date of discharge: 04/11/22 Primary care physician: Drew Soliman MD Admitting clinician: Kristi Diaz Attending physician on admission: Dank Segovia Attending physician on discharge: Dank Segovia Discharging clinician: Kristi Diaz DS: Diagnosis Discharge Diagnosis (1) Recurrent major depression-severe: Status: Acute (2) PTSD (post-traumatic stress disorder): Status: Acute (3) Cocaine use disorder, severe, dependence: Status: Acute (4) Polysubstance abuse: Status: Acute DS: Medications Discharge Medications Home Medications: Previous Rx's Medication Instructions Recorded bictegravir 50 mg-emtricitabine 1 tab PO DAILY #30 tabs 04/08/22 200 mg-tenofovir alafenam 25 mg tablet (Biktarvy) budesonide-formoterol HFA 80 1 inh inhalation BID #1 g 04/08/22 mcg-4.5 mcg/actuation aerosol inhaler (Symbicort) gabapentin 100 mg capsule 200 mg PO TID #180 caps 04/08/22 hydrocortisone 1 % topical cream 1 appl topical BID PRN rash #1 g 04/08/22 mirtazapine 7.5 mg tablet 7.5 mg PO BEDTIME #30 tabs 04/08/22 nicotine (polacrilex) 2 mg gum 4 mg buccal Q2H PRN Nicotine 04/08/22 Cravings #60 ea nicotine 21 mg/24 hr daily 21 mg transdermal DAILY #30 ea 04/08/22 transdermal patch quetiapine 50 mg tablet 1 tab PO BEDTIME #30 tabs 04/08/22 fluticasone furoate 100 1 inh inhalation DAILY 30 days #60 04/09/22 mcg-vilanterol 25 mcg/dose ea inhalation powder (Breo Ellipta) hydroxyzine HCl 25 mg tablet 25 mg PO QID PRN anxiety 30 days 04/09/22 #90 tabs trazodone 50 mg tablet 50 mg PO BEDTIME PRN insomnia 30 04/09/22 days #30 tabs bictegravir 50 mg-emtricitabine 1 tab PO DAILY #30 tabs 04/10/22 200 mg-tenofovir alafenam 25 mg tablet (Biktarvy) budesonide-formoterol HFA 80 1 inh inhalation BID #10.2 grams 04/10/22 mcg-4.5 mcg/actuation aerosol inhaler (Symbicort) fluticasone furoate 100 1 inh inhalation DAILY #60 ea 04/10/22 mcg-vilanterol 25 mcg/dose inhalation powder (Breo Ellipta) gabapentin 100 mg capsule 200 mg PO TID #180 caps 04/10/22 hydrocortisone 1 % topical cream 1 appl topical BID PRN itching 04/10/22 #454 grams mirtazapine 15 mg tablet (Remeron) 7.5 mg PO BEDTIME #15 tabs 04/10/22 nicotine (polacrilex) 4 mg gum 4 mg buccal Q2H PRN nicotine 04/10/22 cravings #50 ea nicotine 21 mg/24 hr daily 1 patch transdermal DAILY #28 ea 04/10/22 transdermal patch quetiapine 50 mg tablet (Seroquel) 50 mg PO BEDTIME #30 tabs 04/10/22 Mental Status Exam Mental Status Exam Patient Appearance: Appropriate Patient Orientation: Person, Place, Time and Situation Level of Consciousness: Alert Patient Behavior: Appropriate, Talkative, Cooperative and Good Eye Contact Mood Description: Calm Affect Description: Constricted Patient Cognition Impaired: No Ability to Follow Directions: Good Speech Pattern: Spontaneous Speech Memory Description: Intact Hallucinations: None Delusions: Not Present Thought Process: Intact and Goal Oriented Thought Content: positive for Intact and positive for Goal Oriented Judgement: Good Data Imaging Diagnostic Imaging Impressions Chest X-Ray 04/02/22 14:45 IMPRESSION: Unremarkable examination. Elbow X-Ray 04/02/22 14:45 IMPRESSION: Mild arthritis at the right acromioclavicular joint otherwise unremarkable exams. Forearm X-Ray 04/02/22 14:45 IMPRESSION: Mild arthritis at the right acromioclavicular joint otherwise unremarkable exams. Humerus X-Ray 04/02/22 14:45 IMPRESSION: Mild arthritis at the right acromioclavicular joint otherwise unremarkable exams. Shoulder X-Ray 04/02/22 14:45 IMPRESSION: Mild arthritis at the right acromioclavicular joint otherwise unremarkable exams. DS: Summary Hospital Course Hospital Course: Admission to adult psychiatry for exacerbation of recurrent major depression with SI, PTSD, Polysubstance Abuse and Cocaine Use Disorder. 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 Seroquel was continued. Gabapentin, Mirtazapine were initiated and were tolerated and pt reported efficacy. Dilip was stabilized in the milieu and discharged to travel to the program via bus. Time spent discussing smoking cessation with patient: 3 to 10 minutes Status at Discharge Functional status at discharge: independent ambulation Overall status at discharge: patient is back to baseline Time Spent with Patient Time attestation: Total time spent providing and/or coordinating discharge services: 45 Time spent: Greater than 30 minutes Discharge Plan Discharge Patient Disposition: Xfer Inpatient Rehab Fac Discharge Diagnosis: Recurrent Major Depression PTSD Polysubstance Use Disorder Cocaine Use Disorder Referrals: [facility] [Other] - 04/11/22 6:30 pm (Referral to [facility] for substance use treatment. Pateint when arriving at [facility] in [place], [place] should call program at [phone]. Program is aware of patient's coming to program on 04/11/22 and will pick him up at bus station.) Drew Soliman MD [Primary Care Provider] - 1 Week (PT. IS LEAVING [facility] WHEN DISCHARGED) Discharge Medications: New nicotine (polacrilex) 2 mg Gum 4 mg buccal Q2H PRN (Reason: Nicotine Cravings) Qty: 60 0RF hydrocortisone 1 % Cream 1 appl topical BID PRN (Reason: rash) Qty: 1 0RF Protocol: Apply to: Apply to: back nicotine 21 mg/24 hr Patch 24 Hour 21 mg transdermal DAILY Qty: 30 0RF gabapentin 100 mg Capsule 200 mg PO TID Qty: 180 0RF mirtazapine 7.5 mg Tablet 7.5 mg PO BEDTIME Qty: 30 0RF fluticasone furoate-vilanterol [Breo Ellipta] 100-25 mcg/dose blister with device 1 inh inhalation DAILY 30 Days Qty: 60 0RF trazodone 50 mg tablet 50 mg PO BEDTIME PRN (Reason: insomnia) 30 Days Qty: 30 0RF hydroxyzine HCl 25 mg tablet 25 mg PO QID PRN (Reason: anxiety) 30 Days Qty: 90 0RF Biktarvy 50-200-25 mg tablet 1 tab PO DAILY Qty: 30 0RF fluticasone furoate-vilanterol [Breo Ellipta] 100-25 mcg/dose blister with device 1 inh inhalation DAILY Qty: 60 0RF gabapentin 100 mg capsule 200 mg PO TID Qty: 180 0RF hydrocortisone 1 % cream 1 appl topical BID PRN (Reason: itching) Qty: 454 0RF mirtazapine [Remeron] 15 mg tablet 7.5 mg PO BEDTIME Qty: 15 0RF nicotine 21 mg/24 hr patch 24 hour 1 patch transdermal DAILY Qty: 28 0RF nicotine (polacrilex) 4 mg gum 4 mg buccal Q2H PRN (Reason: nicotine cravings) Qty: 50 0RF budesonide-formoterol [Symbicort] 80-4.5 mcg/actuation HFA aerosol inhaler 1 inh inhalation BID Qty: 10.2 0RF quetiapine [Seroquel] 50 mg tablet 50 mg PO BEDTIME Qty: 30 0RF Continued quetiapine 50 mg tablet 1 tab PO BEDTIME Qty: 30 0RF budesonide-formoterol [Symbicort] 80-4.5 mcg/actuation HFA aerosol inhaler 1 inh inhalation BID Qty: 1 0RF Biktarvy 50-200-25 mg tablet 1 tab PO DAILY Qty: 30 0RF Discharge Orders: Discharge Order (Routine); Ordered 04/11/22 Ordered By: Kristi Diaz Diet: Advance to usual diet Activity on Discharge: As tolerated Stand Alone Forms: Patient Portal Discharge page Care Plan Goals: Mood and behavioral stabilization Sobriety Health Concerns: Depression PTSD Polysubstance use Cocaine use Plan of Treatment: Follow up with out patient providers Take medications as directed Assessment: non suicidal, non psychotic pleased to be attending a rehab program he has attended in the past and done well with when he lived in [place]. Discharge Date/Time: 04/11/22 08:06
== END 2022-04-11 08:06 | DRG 751 ==
LOC: HO.ED 03-31 18:33 → HO.PM5 03-31 21:44
PROVIDERS: Emergency Medicine; Nurse Practitioner Family; Admitting Provider Psychiatry & Neurology Psychiatry; Emergency Provider Internal Medicine; PCP Internal Medicine Infectious Disease; Visit Provider Clinical Nurse Specialist Psychiatric/Mental Health, Adult
DX: F33.2 Major depressive disorder, recurrent severe without psychotic features (principal); R45.851 Suicidal ideations; F14.20 Cocaine dependence, uncomplicated; F43.10 Post-traumatic stress disorder, unspecified; Z20.822 Contact with and (suspected) exposure to COVID-19; Z79.51 Long term (current) use of inhaled steroids; Z79.899 Other long term (current) drug therapy
CPT/HCPCS: 36415; 71046; 73030; 73060; 73070; 73090; 80053; 80061; 80307; 82077; 82607; 82746; 83036; 83735; 84439; 84443; 85025; 87635; 93005; 99285

== ENCOUNTER 2022-10-01 14:49 | Inpatient (IN) | payer OTHER, SELFPAY ==
--- NOTE | 2022-10-01 | ECG_ITS ---
Test Reason : MED CLEARANCE Blood Pressure : / mmHG Vent. Rate : 065 BPM Atrial Rate : 065 BPM P-R Int : 152 ms QRS Dur : 094 ms QT Int : 370 ms P-R-T Axes : 047 059 056 degrees QTc Int : 384 ms Normal sinus rhythm Normal ECG When compared with ECG of 31-MAR-2022 10:18, No significant change was found Referred By: Colten Martinez Electronically Signed By:JULEE CERDA MD
--- NOTE | ~2022-10-01 | XR_ITS ---
EXAMINATION: XR CHEST CLINICAL INFORMATION: Chronic cough COMPARISON: Chest x-ray on 04/02/2022 TECHNIQUE: 2 views of the chest were obtained. FINDINGS: The cardiac silhouette is normal. There is mild diffuse bronchial wall thickening. There are no areas of consolidation. There are no pleural effusions or pneumothoraces. The bones and soft tissues are unremarkable for the patient's age. XR/XR chest 2V IMPRESSION: Bronchial wall thickening may be infectious and/or inflammatory in etiology.
[2022-10-01 15:08] VITALS: BP 128/84; PULSE 80; O2SAT 98
[2022-10-01 15:22] VITALS: BMI 26.6
[2022-10-01 15:39] LABS: Appearance Urine Clear; Color Urine Yellow; Glucose Urine UA Negative (Negative); Leukocyte Esterase Urine Negative (Negative); Nitrite Urine Negative (Negative); PH 6.5 (5.0-9.0); Urine Blood Negative (Negative); Urine Ketones Negative (Negative); Urine Protein Negative (Neg-Trace)
[2022-10-01 15:50] LABS: Amphetamine Screen Urine Not Detected (Not Detect); Barbiturates, Urine Not Detected (Not Detect); Benzodiazepines Screen Urine Not Detected (Not Detect); Cannabinoid Screen Urine Not Detected (Not Detect); Cocaine Screen Urine POSITIVE (Not Detect); Fentanyl, urine Not Detected (Not Detect); Opiate Screen Urine Not Detected (Not Detect); Phencyclidine Screen Urine Not Detected (Not Detect)
[2022-10-01 16:09] LABS: MANUAL DIFF FLAG NO
[2022-10-01 16:10] LABS: Basophils Percent Auto 0.4 % (0-2); Eosinophils Percent Auto 0.8 % (0-4); Hematocrit 37.7 % (42.0-52.0); Hemoglobin 13.2 g/dl (14.0-18.0); Imm Gran Abs Auto 0.01 X10*3/uL (0.00-0.03); Imm Gran Pct Auto 0.2 % (0.0-0.4); Lymphocytes Absolute Auto 1.1 X10*3/uL (1.2-4.9); Lymphocytes Percent Auto 21.5 % (20-40); Mean Corpuscular Hemoglobin 32.8 pg (27.0-33.0); Mean Corpuscular Volume 93.8 fL (80.0-98.0); Mean Platelet Volume 9.8 fL (9.4-12.4); Monocytes Absolute Auto 0.5 X10*3/uL (0.1-1.2); Monocytes Percent Auto 9.5 % (2-11); Neutrophils Absolute Auto 3.4 x10*3/uL (2.0-8.3); Neutrophils Percent Auto 67.6 % (45-73); Platelet Count 210 X10*3/uL (160-400); Red Blood Count 4.02 X10*6/uL (4.60-5.80); Red Cell Distribution Width 12.5 % (11.0-16.0); White Blood Count 5.1 X10*3/uL (4.8-10.8)
[2022-10-01 16:10] LABS: COVID-19 Test Negative (Negative); IDNOW Serial# 16C4AD1C
[2022-10-01 16:43] LABS: Alanine Aminotransferase 14 U/L (0-40); Albumin Level 4.1 g/dL (3.5-5.0); Alkaline Phosphatase 42 U/L (39-117); Anion Gap 13 (12-20); Aspartate Amino Transferase 18 U/L (5-37); Bilirubin Total 0.5 mg/dL (0.0-1.0); Blood Urea Nitrogen 10 mg/dL (9-16); Calcium 9.4 mg/dL (8.4-10.2); Carbon Dioxide 27 mmol/L (22-29); Chloride 105 mmol/L (96-108); Creatinine Clr Calc Pharmacy 81.2; Estimated Glomerular Filt Rate > 60; Ethanol < 10 mg/dL; Glucose Random 148 mg/dL (60-115); Potassium 3.7 mmol/L (3.3-5.1); Sodium 141 mmol/L (135-145); Total Protein 6.9 g/dL (6.5-8.0)
[2022-10-01 17:02] VITALS: BP 119/73; PULSE 84; RESP 16; TEMP 37.4; O2SAT 97
--- NOTE | 2022-10-01 17:10 | ED_ITS ---
HPI - Psych General Chief Complaint: Psychiatric Symptoms Stated Complaint: CRISIS, sec 12 per EMS Time Seen by Provider: 10/01/22 14:59 Source: patient Mode of arrival: EMS Limitations: no limitations History of Present Illness HPI Narrative: Patient is a 51-year-old male who presents to the emergency department via EMS on a Section [address] [facility] in the community for SI with a plan to harm himself by either running into traffic or harming himself with a knife. Patient has also been experiencing visual hallucinations per his Section 12. Patient denies any new use in a shins when asked at this time. He denies any drug or alcohol usage. He is very disorganized thought process when speaking with him. Denies any physical complaints. Denies any recent sick contacts. He states that he has been taking his medications as prescribed. Related Data Previous Rx's Medication Instructions Recorded bictegravir 50 mg-emtricitabine 1 tab PO DAILY #30 tabs 04/08/22 200 mg-tenofovir alafenam 25 mg tablet (Biktarvy) budesonide-formoterol HFA 80 1 inh inhalation BID #1 g 04/08/22 mcg-4.5 mcg/actuation aerosol inhaler (Symbicort) gabapentin 100 mg capsule 200 mg PO TID #180 caps 04/08/22 hydrocortisone 1 % topical cream 1 appl topical BID PRN rash #1 g 04/08/22 mirtazapine 7.5 mg tablet 7.5 mg PO BEDTIME #30 tabs 04/08/22 nicotine (polacrilex) 2 mg gum 4 mg buccal Q2H PRN Nicotine 04/08/22 Cravings #60 ea nicotine 21 mg/24 hr daily 21 mg transdermal DAILY #30 ea 04/08/22 transdermal patch quetiapine 50 mg tablet 1 tab PO BEDTIME #30 tabs 04/08/22 fluticasone furoate 100 1 inh inhalation DAILY 30 days #60 04/09/22 mcg-vilanterol 25 mcg/dose ea inhalation powder (Breo Ellipta) hydroxyzine HCl 25 mg tablet 25 mg PO QID PRN anxiety 30 days 04/09/22 #90 tabs trazodone 50 mg tablet 50 mg PO BEDTIME PRN insomnia 30 04/09/22 days #30 tabs bictegravir 50 mg-emtricitabine 1 tab PO DAILY #30 tabs 04/10/22 200 mg-tenofovir alafenam 25 mg tablet (Biktarvy) budesonide-formoterol HFA 80 1 inh inhalation BID #10.2 grams 04/10/22 mcg-4.5 mcg/actuation aerosol inhaler (Symbicort) fluticasone furoate 100 1 inh inhalation DAILY #60 ea 04/10/22 mcg-vilanterol 25 mcg/dose inhalation powder (Breo Ellipta) gabapentin 100 mg capsule 200 mg PO TID #180 caps 04/10/22 hydrocortisone 1 % topical cream 1 appl topical BID PRN itching 04/10/22 #454 grams mirtazapine 15 mg tablet (Remeron) 7.5 mg PO BEDTIME #15 tabs 04/10/22 nicotine (polacrilex) 4 mg gum 4 mg buccal Q2H PRN nicotine 04/10/22 cravings #50 ea nicotine 21 mg/24 hr daily 1 patch transdermal DAILY #28 ea 04/10/22 transdermal patch quetiapine 50 mg tablet (Seroquel) 50 mg PO BEDTIME #30 tabs 04/10/22 Allergies Allergy/AdvReac Type Severity Reaction Status Date / Time No Known Allergies Allergy Verified 03/30/22 17:29 Review of Systems Review of Systems: Yes all other systems are reviewed and are negative PMFSH Past Medical History Attestation statement: The following information was validated with the patient. Source: old records reviewed Medical History Cocaine use disorder, severe, dependence Polysubstance abuse PTSD (post-traumatic stress disorder) Recurrent major depression-severe Social History Social History Household Members: None Housing: Apartment Do you presently have visiting nurse or other home services: No Alcohol intake: never Patient Tobacco Use Status: Current everyday Tobacco user Tobacco use type: Cigarette Cigarette Packs Per Day: 1 Cigarettes Per Day: 20 Smoked in Last 30 Days: Yes Use of substances other than those prescribed or required for medical reasons: Yes Substance Use Type: Crack/Cocaine Substance Use Frequency Other:: last night Last Used Substance: Days (ago) Advance Directives: No Advance Directives Information Provided: No service: No Sexual orientation: Lesbian/Egan/Homosexual Physical Exam Vital Signs: Vital Signs: Last Vital Signs Temp 99.4 F 10/01/22 17:02 Pulse 84 10/01/22 17:02 Resp 16 10/01/22 17:02 BP 119/73 10/01/22 17:02 Pulse Ox 97 10/01/22 17:02 O2 Del Method 10/01/22 17:02 BMI result Body Mass Index 26.6 Appearance: Alert.?Oriented to person, place and time. No acute distress.?Normal affect. Eyes: Pupils equal, round and reactive to light.? ENT: Pharynx normal.?? Neck: Normal inspection.? Neck supple.?? CVS: Heart sounds normal. Normal heart rate and rhythm.? Pulses normal.?? Respiratory: No respiratory distress.? Lung sounds clear to auscultation bilaterally?? Abdomen: Soft and non-tender. Normoactive bowel sounds. Skin: Skin warm and dry.? Normal skin color.? Extremities: No lower extremity edema.? Neuro: Moves all extremities spontaneously. Sensation intact bilaterally. CN II- XII intact. No focal neuro deficits. Ambulates with normal steady gait. Course Reevaluation(s) Reevaluation #1: CBC and CMP are overall unremarkable. Urinalysis without evidence infection, urine drug screen is positive for cocaine, ethanol level below detectable limi ts. COVID-19 testing is negative. Patient placed in physician observation so the inpatient bed search can ensue. He is calm and cooperative. No apparent distress at this time. Time: 17:13 Medical Decision Making Medical Decision Making [facility] Narrative: Patient is a 51-year-old male with past medical history of PTSD, polysubstance use disorder, depression presenting to the emergency department on a Section 12 from clinician in the community. Patient with suicidal ideations an indoor [place] a plan. Will obtain labs for medical clearance. At this time he has no physical complaints, his physical examination is benign, vital signs are stable. Differential Diagnosis Differential Diagnoses: The differential diagnosis associated with the presentation includes (Anxiety, depression, delirium, polysubstance use, suicidal ideations) Admission/Observation Consideration of admission/observation: Escalation of care including admission/observation considered (Patient placed in physician observation, the reason for observation being that additional time was required for bed search to ensue for inpatient psychiatric services.) Lab Data [facility] Lab Attestation statement: I reviewed the patient's lab results. 10/01/22 16:04 10/01/22 16:04 Labs: Lab Results 10/01/22 10/01/22 10/01/22 Range/Units 15:31 15:32 15:32 WBC (4.8-10.8) X10*3/uL RBC (4.60-5.80) X10*6/uL Hgb (14.0-18.0) g/dl Hct (42.0-52.0) % MCV (80.0-98.0) fL MCH (27.0-33.0) pg MCHC (31.0-36.0) g/dl RDW (11.0-16.0) % Plt Count (160-400) X10*3/uL MPV (9.4-12.4) fL Immature Gran % (Auto) (0.0-0.4) % Neut % (Auto) (45-73) % Lymph % (Auto) (20-40) % [place] % (Auto) (2-11) % Eos % (Auto) (0-4) % Baso % (Auto) (0-2) % Lymph # (Auto) (1.2-4.9) X10*3/uL [place] # (Auto) (0.1-1.2) X10*3/uL Eos # (Auto) (0.0-0.4) X10*3/uL Baso # (Auto) (0.0-0.2) X10*3/uL Abs Immat Gran (auto) (0.00-0.03) X10*3/uL Absolute Neuts (auto) (2.0-8.3) x10*3/uL Absolute Nucleated RBC (0.0-0.012) X10*3/uL Nucleated RBC % (auto) (0.0-0.2) /100WBC Sodium (135-145) mmol/L Potassium (3.3-5.1) mmol/L Chloride (96-108) mmol/L Carbon Dioxide (22-29) mmol/L Anion Gap (12-20) BUN (9-16) mg/dL Creatinine (0.5-1.4) mg/dL Estim Creat Clear Calc Estimated GFR Random Glucose (60-115) mg/dL Calcium (8.4-10.2) mg/dL Total Bilirubin (0.0-1.0) mg/dL AST (5-37) U/L ALT (0-40) U/L Alkaline Phosphatase (39-117) U/L Total Protein (6.5-8.0) g/dL Albumin (3.5-5.0) g/dL Urine Color Yellow Urine Appearance Clear Urine pH 6.5 (5.0-9.0) Ur Specific [place] 1.010 (1.005-1.025) Urine Protein Negative (Neg-Trace) mg/dL Urine Glucose (UA) Negative (Negative) mg/dL Urine Ketones Negative (Negative) mg/dL Urine Blood Negative (Negative) Urine Nitrite Negative (Negative) Ur Leukocyte Esterase Negative (Negative) Urine Opiates Screen Not Detected (Not Detect) Urine Fentanyl Screen Not Detected (Not Detect) Ur Barbiturates Screen Not Detected (Not Detect) Ur Phencyclidine Scrn Not Detected (Not Detect) Ur Amphetamines Screen Not Detected (Not Detect) U Benzodiazepines Scrn Not Detected (Not Detect) Urine Cocaine Screen POSITIVE H (Not Detect) U Marijuana (THC) Screen Not Detected (Not Detect) Ethyl Alcohol mg/dL COVID-19 (MARISA) Negative (Negative) COVID-19 Clin Com See Note 10/01/22 10/01/22 Range/Units 16:04 16:04 WBC 5.1 (4.8-10.8) X10*3/uL RBC 4.02 L (4.60-5.80) X10*6/uL Hgb 13.2 L (14.0-18.0) g/dl Hct 37.7 L (42.0-52.0) % MCV 93.8 (80.0-98.0) fL MCH 32.8 (27.0-33.0) pg MCHC 35.0 (31.0-36.0) g/dl RDW 12.5 (11.0-16.0) % Plt Count 210 D (160-400) X10*3/uL MPV 9.8 (9.4-12.4) fL Immature Gran % (Auto) 0.2 (0.0-0.4) % Neut % (Auto) 67.6 (45-73) % Lymph % (Auto) 21.5 (20-40) % [place] % (Auto) 9.5 (2-11) % Eos % (Auto) 0.8 (0-4) % Baso % (Auto) 0.4 (0-2) % Lymph # (Auto) 1.1 L (1.2-4.9) X10*3/uL [place] # (Auto) 0.5 (0.1-1.2) X10*3/uL Eos # (Auto) 0.0 (0.0-0.4) X10*3/uL Baso # (Auto) 0.0 (0.0-0.2) X10*3/uL Abs Immat Gran (auto) 0.01 (0.00-0.03) X10*3/uL Absolute Neuts (auto) 3.4 (2.0-8.3) x10*3/uL Absolute Nucleated RBC 0.000 (0.0-0.012) X10*3/uL Nucleated RBC % (auto) 0.0 (0.0-0.2) /100WBC Sodium 141 (135-145) mmol/L Potassium 3.7 (3.3-5.1) mmol/L Chloride 105 (96-108) mmol/L Carbon Dioxide 27 (22-29) mmol/L Anion Gap 13 (12-20) BUN 10 (9-16) mg/dL Creatinine 1.10 (0.5-1.4) mg/dL Estim Creat Clear Calc 81.2 Estimated GFR > 60 Random Glucose 148 H (60-115) mg/dL Calcium 9.4 (8.4-10.2) mg/dL Total Bilirubin 0.5 (0.0-1.0) mg/dL AST 18 (5-37) U/L ALT 14 (0-40) U/L Alkaline Phosphatase 42 (39-117) U/L Total Protein 6.9 (6.5-8.0) g/dL Albumin 4.1 (3.5-5.0) g/dL Urine Color Urine Appearance Urine pH (5.0-9.0) Ur Specific [place] (1.005-1.025) Urine Protein (Neg-Trace) mg/dL Urine Glucose (UA) (Negative) mg/dL Urine Ketones (Negative) mg/dL Urine Blood (Negative) Urine Nitrite (Negative) Ur Leukocyte Esterase (Negative) Urine Opiates Screen (Not Detect) Urine Fentanyl Screen (Not Detect) Ur Barbiturates Screen (Not Detect) Ur Phencyclidine Scrn (Not Detect) Ur Amphetamines Screen (Not Detect) U Benzodiazepines Scrn (Not Detect) Urine Cocaine Screen (Not Detect) U Marijuana (THC) Screen (Not Detect) Ethyl Alcohol < 10 mg/dL COVID-19 (MARISA) (Negative) COVID-19 Clin Com Discharge Plan Discharge Clinical Impression: PTSD (post-traumatic stress disorder), Recurrent major depression-severe, Cocaine use disorder, severe, dependence, Suicidal ideation Patient Disposition: Still a Patient Prescriptions: No Action nicotine (polacrilex) 2 mg Gum 4 mg buccal Q2H PRN (Reason: Nicotine Cravings) Qty: 60 0RF hydrocortisone 1 % Cream 1 appl topical BID PRN (Reason: rash) Qty: 1 0RF Protocol: Apply to: Apply to: back nicotine 21 mg/24 hr Patch 24 Hour 21 mg transdermal DAILY Qty: 30 0RF gabapentin 100 mg Capsule 200 mg PO TID Qty: 180 0RF mirtazapine 7.5 mg Tablet 7.5 mg PO BEDTIME Qty: 30 0RF quetiapine 50 mg tablet 1 tab PO BEDTIME Qty: 30 0RF budesonide-formoterol [Symbicort] 80-4.5 mcg/actuation HFA aerosol inhaler 1 inh inhalation BID Qty: 1 0RF Biktarvy 50-200-25 mg tablet 1 tab PO DAILY Qty: 30 0RF fluticasone furoate-vilanterol [Breo Ellipta] 100-25 mcg/dose blister with device 1 inh inhalation DAILY 30 Days Qty: 60 0RF trazodone 50 mg tablet 50 mg PO BEDTIME PRN (Reason: insomnia) 30 Days Qty: 30 0RF hydroxyzine HCl 25 mg tablet 25 mg PO QID PRN (Reason: anxiety) 30 Days Qty: 90 0RF Biktarvy 50-200-25 mg tablet 1 tab PO DAILY Qty: 30 0RF fluticasone furoate-vilanterol [Breo Ellipta] 100-25 mcg/dose blister with device 1 inh inhalation DAILY Qty: 60 0RF gabapentin 100 mg capsule 200 mg PO TID Qty: 180 0RF hydrocortisone 1 % cream 1 appl topical BID PRN (Reason: itching) Qty: 454 0RF mirtazapine [Remeron] 15 mg tablet 7.5 mg PO BEDTIME Qty: 15 0RF nicotine 21 mg/24 hr patch 24 hour 1 patch transdermal DAILY Qty: 28 0RF nicotine (polacrilex) 4 mg gum 4 mg buccal Q2H PRN (Reason: nicotine cravings) Qty: 50 0RF budesonide-formoterol [Symbicort] 80-4.5 mcg/actuation HFA aerosol inhaler 1 inh inhalation BID Qty: 10.2 0RF quetiapine [Seroquel] 50 mg tablet 50 mg PO BEDTIME Qty: 30 0RF Interventions: Cook-Suicide Risk Severity Scale Last Done: 10/01/22 15:26
--- NOTE | 2022-10-01 20:01 | PHA.MEDREC ---
Pharmacy Consult ? Medication Reconciliation RN has completed the medication reconciliation, pharmacy reviewed
[2022-10-01 21:16] VITALS: BP 128/82; PULSE 76; RESP 14; TEMP 37.1; O2SAT 99
[2022-10-01] MEDS: QUEtiapine Fumarate 50 MG TABLET PO (21:34)
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
[2022-10-02 07:00] VITALS: BMI 27.3
[2022-10-02 08:00] VITALS: BP 103/63; PULSE 55; RESP 18; TEMP 36.6; O2SAT 98
[2022-10-02] MEDS: Loratadine 10 MG TABLET PO (08:35)
[2022-10-02] MEDS: Bictegrav/Emtricit/Tenofov Ala TABLET 1 TAB PO (08:35)
[2022-10-02] MEDS: Fluticasone/Vilanterol 100/25 BLST.W.DEV 1 PUFF INHALE (08:36)
[2022-10-02] MEDS: Triamcinolone Acet 0.5 % Cream 15 GM TUBE 1 APPL TOPICAL ×2 (08:37→21:00)
--- NOTE | 2022-10-02 12:42 | PC.NURSE ---
with account advisor i reviewed with Dilip his PRN meds.
--- NOTE | 2022-10-02 12:45 | PC.NURSE ---
PRN meds reviewed with interpretor.
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
[2022-10-02 20:10] VITALS: BP 120/67; PULSE 58; RESP 18; TEMP 36.3; O2SAT 99
[2022-10-02] MEDS: QUEtiapine Fumarate 50 MG TABLET PO (20:16)
--- NOTE | 2022-10-02 21:38 | MHC.RECOVSUP ---
? Reason for consult:ETOH/FIFI o? Current location:307-1? o? Identified substance use concern:? -? Support ? Intervention: o? Community resources provided o? Harm reduction discussion ? Plan: o? Follow up tomorrow? ? Additional information:RC met with pt upstairs and ecplained what a defensive secondary coach is, Pt is interested, I provided him with defensive secondary coach & [facility] pamphlets. I'll follow up with him tomorrow.
[2022-10-03 08:00] VITALS: BP 112/74; PULSE 62; RESP 18; TEMP 36.7; O2SAT 98
[2022-10-03] MEDS: Bictegrav/Emtricit/Tenofov Ala TABLET 1 TAB PO (09:03)
[2022-10-03] MEDS: Triamcinolone Acet 0.5 % Cream 15 GM TUBE 1 APPL TOPICAL (09:04)
[2022-10-03] MEDS: Loratadine 10 MG TABLET PO (09:04)
[2022-10-03] MEDS: Fluticasone/Vilanterol 100/25 BLST.W.DEV 1 PUFF INHALE (09:04)
--- NOTE | 2022-10-03 14:00 | P.PNPSI_ITS ---
Subjective Subjective Date of Service: 10/03/22 Reason For Visit: SI Interim History: seen with panama hat hydraulic press operator. denies SI/AVH. says his mood is OK. no questions or complaints. seems more interested in splitting hairs and attempting to argue with MD than discussing his mental health and substance use Tx. picking lint off his clothes again much of interview, presenting a flippant and uninterested picture. informed of plan for thursday discharge and to discuss discharge plans with SW today. per staff, withdrawn. not attending groups. eating and sleeping well. showered. resource recovery specialist saw pt last night and will see him again today. Mental Status Exam Mental Status Exam Narrative: Adequately dressed and groomed.? Cooperative, PMA of uninterestedly picking lint, etc, from his clothes for 75% of the interview.? poor eye contact. Speech nml rate, decr amount, decr loudness, flattened tone, incr latency.? Thoughts vague and evasive.? Affect constricted, normo-intense, non-labile.? Mood ok. No SI/HI/HI/AVH expressed. Diagnostics Vital Signs (24Hr): Vital Signs - 24 hr 10/02/22 20:10 10/03/22 08:00 Temperature 97.4 F 98.0 F Pulse Rate 58 62 Respiratory Rate 18 18 Blood Pressure 120/67 112/74 Pulse Oximetry 99 98 Oxygen Delivery Method Room Air Room Air BMI result Body Mass Index 27.3 Labs 10/01/22 16:04 10/01/22 16:04 Labs: Laboratory Results - last 48 hr 10/01/22 10/01/22 10/01/22 15:31 15:32 15:32 WBC RBC Hgb Hct MCV MCH MCHC RDW Plt Count MPV Immature Gran % (Auto) Neut % (Auto) Lymph % (Auto) [place] % (Auto) Eos % (Auto) Baso % (Auto) Lymph # (Auto) [place] # (Auto) Eos # (Auto) Baso # (Auto) Abs Immat Gran (auto) Absolute Neuts (auto) Absolute Nucleated RBC Nucleated RBC % (auto) Sodium Potassium Chloride Carbon Dioxide Anion Gap BUN Creatinine Estim Creat Clear Calc Estimated GFR Random Glucose Calcium Total Bilirubin AST ALT Alkaline Phosphatase Total Protein Albumin Urine Color Yellow Urine Appearance Clear Urine pH 6.5 Ur Specific [place] 1.010 Urine Protein Negative Urine Glucose (UA) Negative Urine Ketones Negative Urine Blood Negative Urine Nitrite Negative Ur Leukocyte Esterase Negative Urine Opiates Screen Not Detected Urine Fentanyl Screen Not Detected Ur Barbiturates Screen Not Detected Ur Phencyclidine Scrn Not Detected Ur Amphetamines Screen Not Detected U Benzodiazepines Scrn Not Detected Urine Cocaine Screen POSITIVE H U Marijuana (THC) Screen Not Detected Ethyl Alcohol COVID-19 ([facility]) Negative COVID-19 Clin Com See Note 10/01/22 10/01/22 16:04 16:04 WBC 5.1 RBC 4.02 L Hgb 13.2 L Hct 37.7 L MCV 93.8 MCH 32.8 MCHC 35.0 RDW 12.5 Plt Count 210 D MPV 9.8 Immature Gran % (Auto) 0.2 Neut % (Auto) 67.6 Lymph % (Auto) 21.5 [place] % (Auto) 9.5 Eos % (Auto) 0.8 Baso % (Auto) 0.4 Lymph # (Auto) 1.1 L [place] # (Auto) 0.5 Eos # (Auto) 0.0 Baso # (Auto) 0.0 Abs Immat Gran (auto) 0.01 Absolute Neuts (auto) 3.4 Absolute Nucleated RBC 0.000 Nucleated RBC % (auto) 0.0 Sodium 141 Potassium 3.7 Chloride 105 Carbon Dioxide 27 Anion Gap 13 BUN 10 Creatinine 1.10 Estim Creat Clear Calc 81.2 Estimated GFR > 60 Random Glucose 148 H Calcium 9.4 Total Bilirubin 0.5 AST 18 ALT 14 Alkaline Phosphatase 42 Total Protein 6.9 Albumin 4.1 Urine Color Urine Appearance Urine pH Ur Specific [place] Urine Protein Urine Glucose (UA) Urine Ketones Urine Blood Urine Nitrite Ur Leukocyte Esterase Urine Opiates Screen Urine Fentanyl Screen Ur Barbiturates Screen Ur Phencyclidine Scrn Ur Amphetamines Screen U Benzodiazepines Scrn Urine Cocaine Screen U Marijuana (THC) Screen Ethyl Alcohol < 10 COVID-19 ([facility]) COVID-19 Clin Com Medications Medications Current Medications Acetaminophen (Acetaminophen 325 Mg Tablet) 650 mg PO Q6H PRN PRN Reason: Headache/Pain Mild Scale (1-3) Al Hydroxide/Mg Hydroxide (Magnesium Hydrox/Alum Hydrox 30 Ml Oral.Susp) 30 ml PO Q6H PRN PRN Reason: Heartburn/Nausea Albuterol Sulfate (Albuterol Sulfate 90 Mcg 8 Gm Inhaler) 2 puff INHALE Q4H PRN PRN Reason: Shortness Of Breath Bictegravir/Emtricitabine/Tenofovir (Bictegrav/Emtricit/Tenofov Ala Tablet) 1 tab PO DAILY [facility] Last Admin: 10/03/22 09:03 Dose: 1 tab Fluticasone/Vilanterol (Fluticasone/Vilanterol 100/25 Blst.W.Dev) 1 puff INHALE RDAILY [facility] Last Admin: 10/03/22 09:04 Dose: 1 puff Hydroxyzine HCl (Hydroxyzine Hcl 25 Mg Tablet) 25 mg PO Q6H PRN PRN Reason: Anxiety Loratadine (Loratadine 10 Mg Tablet) 10 mg PO DAILY [facility] Last Admin: 10/03/22 09:04 Dose: 10 mg Magnesium Hydroxide (Milk Of Magnesia 30 Ml Oral.Susp) 30 ml PO DAILY PRN PRN Reason: Constipation Nicotine Polacrilex (Nicotine Polacrilex 2 Mg Gum) 4 mg BUCCAL Q2H PRN PRN Reason: Nicotine Cravings Olanzapine (Olanzapine 5 Mg Tablet) 5 mg PO TID PRN PRN Reason: agitation Quetiapine Fumarate (Quetiapine Fumarate 50 Mg Tablet) 50 mg PO BEDTIME [facility] Last Admin: 10/02/22 20:16 Dose: 50 mg Trazodone HCl (Trazodone Hcl 50 Mg Tablet) 50 mg PO BEDTIME MRX1 PRN PRN Reason: Insomnia Triamcinolone Acetonide (Triamcinolone Acet 0.5 % Cream 15 Gm Tube) 1 appl TOPICAL BID [facility]; Protocol Last Admin: 10/03/22 09:04 Dose: 1 appl Allergies Allergies Allergy/AdvReac Type Severity Reaction Status Date / Time No Known Allergies Allergy Verified 03/30/22 17:29 Assessment & Plan Assessment & Plan (1) Cocaine use disorder, severe, dependence: Status: Acute Code(s): F14.20 - Cocaine dependence, uncomplicated (2) PTSD (post-traumatic stress disorder): Status: Acute Code(s): F43.10 - Post-traumatic stress disorder, unspecified (3) Recurrent major depression-severe: Status: Acute Code(s): F33.2 - Major depressive disorder, recurrent severe without psychotic features Plan 10/02: supportive care for cocaine withdrawal. restart seroquel 50 mg QHS. NRT. 10/03: pt declines to restart remeron or gabapentin; neither seems indicated in any case. CXR for c/o chronic cough. planning for thursday discharge. Patient educated on: diagnosis, medication risk/benefits and substance abuse Reason for contiued inpatient stay Substantial Risk for: rapid decompensation Time Spent With Patient Time: Total time managing care of this patient today _25___ minutes.
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
== END 2022-10-03 17:04 | disposition home or self-care (01) | DRG 751 ==
LOC: HO.ED 17:42 → HO.PADLT16 20:33
PROVIDERS: Nurse Practitioner Family; Admitting Provider Psychiatry & Neurology Psychiatry; Emergency Provider Emergency Medicine; Visit Provider Psychiatry & Neurology Psychiatry
DX: F33.2 Major depressive disorder, recurrent severe without psychotic features (principal); R45.851 Suicidal ideations; F14.20 Cocaine dependence, uncomplicated; F17.210 Nicotine dependence, cigarettes, uncomplicated; F43.10 Post-traumatic stress disorder, unspecified; Z20.822 Contact with and (suspected) exposure to COVID-19; Z71.6 Tobacco abuse counseling; Z79.899 Other long term (current) drug therapy
CPT/HCPCS: 71046; 80053; 80307; 81003; 82077; 85025; 87635; 93005; 99285